=== PATIENT | female | born 1975 | race American Indian/Alaskan Native ===

== ENCOUNTER 2016-12-30 14:21 | Emergency (ER) | payer MEDICAID ==
[2016-12-30 14:52] VITALS: BP 143/80
--- NOTE | 2016-12-30 14:52 | Emergency Department Report ---
Chief Complaint: Extremity Injury, Lower Stated Complaint: MUSCLE PAIN Time Seen by Provider: 12/30/16 14:50 - HPI History of Present Illness: PT c/o calf pain and tightness, no relief with elevation or Motrin 800mg PT states the pain started after she worked on her feet for 10 hours - ROS Review of Systems: R calf pain and swelling - sob - cp - Exam Physical Exam: R calf ttp MSE screening note: Focused history and physical exam performed. Due to findings the following was ordered: us ED Disposition for MSE Condition: Stable
[2016-12-30] MEDS ORDERED: TORADOL IM ONE (16:33)
[2016-12-30] MEDS ORDERED: NORCO 7.5/325 PO ONE (16:33)
[2016-12-30] MEDS ORDERED: FLEXERIL PO ONE (16:33)
--- NOTE | 2016-12-30 18:09 | Emergency Department Report ---
ED Lower Extremity HPI - General Chief Complaint: Extremity Injury, Lower Stated Complaint: MUSCLE PAIN Time Seen by Provider: 12/30/16 14:50 Source: patient Mode of arrival: Ambulatory Limitations: No Limitations - History of Present Illness Initial Comments: 41 year old female presents to ED with right lower leg pain x3 days. 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 patient is stable, neurologically intact and in no acute distress. patient is ambulatory. patient denies injury. Vascular U/S pending. patient will be given pain medication for relief while waiting U/S results. patient has had tubal ligation. Complaint: other (right lower leg pain) -: Gradual, days(s) (3) Injury: Leg: Right Place: work Severity: mild Worsens With: movement - Related Data Previous Rx's Medication Instructions Recorded Last Taken Type Acetaminophen/Codeine 1 tab PO Q6H PRN #25 tab 04/25/14 Unknown Rx [Acetaminophen-Codeine #3 TAB] Doxycycline [Vibramycin CAP] 100 mg PO BID #20 capsule 04/25/14 Unknown Rx Ibuprofen [Motrin] 600 mg PO Q8H PRN #40 tablet 04/25/14 Unknown Rx Famotidine [Pepcid] 20 mg PO BID #40 tablet 04/03/15 Unknown Rx Hyoscyamine Subl [Levsin Sl 0.125 0.125 mg SL Q6HR PRN #20 tab 04/03/15 Unknown Rx TAB] Promethazine [Phenergan TAB] 25 mg PO Q6HR PRN #20 tab 04/03/15 Unknown Rx Ibuprofen [Motrin 800 MG tab] 800 mg PO Q8HR PRN #30 tablet 07/11/15 Unknown Rx Phenazopyridine [Pyridium] 100 mg PO TID #6 tab 07/11/15 Unknown Rx Sulfamethoxazole/Trimethoprim 1 each PO BID #14 tablet 07/11/15 Unknown Rx [Bactrim DS TAB] Oseltamivir [Tamiflu] 75 mg PO BID #10 cap 05/26/16 Unknown Rx Ketorolac [Toradol] 10 mg PO Q6H PRN #20 tablet 12/30/16 Unknown Rx methOCARBAMOL [Robaxin TAB] 500 mg PO BID #20 tab 12/30/16 Unknown Rx Allergies Allergy/AdvReac Type Severity Reaction Status Date / Time No Known Allergies Allergy Unverified 04/25/14 08:41 ED Review of Systems ROS: Stated complaint: MUSCLE PAIN Other details as noted in HPI Constitutional: denies: chills, fever Eyes: denies: eye pain, eye discharge, vision change ENT: denies: ear pain, throat pain Respiratory: denies: cough, shortness of breath, wheezing Cardiovascular: denies: chest pain, palpitations Endocrine: no symptoms reported Gastrointestinal: denies: abdominal pain, nausea, diarrhea Genitourinary: denies: urgency, dysuria, discharge Musculoskeletal: denies: back pain, joint swelling, arthralgia Skin: denies: rash, lesions Neurological: denies: headache, weakness, paresthesias Psychiatric: denies: anxiety, depression Hematological/Lymphatic: denies: easy bleeding, easy bruising ED Past Medical Hx - Past Medical History Previous Medical History?: Yes Hx Hypertension: Yes Additional medical history: ovarian cyst - Surgical History Past Surgical History?: Yes Additional Surgical History: abd wall mass removed- 2010. x 3 - Social History Smoking Status: Current Every Day Smoker Substance Use Type: Alcohol - Medications Home Medications: Home Medications Medication Instructions Recorded Confirmed Last Taken Type Acetaminophen/Codeine 1 tab PO Q6H PRN #25 tab 04/25/14 Unknown Rx [Acetaminophen-Codeine #3 TAB] Doxycycline [Vibramycin CAP] 100 mg PO BID #20 capsule 04/25/14 Unknown Rx Ibuprofen [Motrin] 600 mg PO Q8H PRN #40 tablet 04/25/14 Unknown Rx Famotidine [Pepcid] 20 mg PO BID #40 tablet 04/03/15 Unknown Rx Hyoscyamine Subl [Levsin Sl 0.125 0.125 mg SL Q6HR PRN #20 tab 04/03/15 Unknown Rx TAB] Promethazine [Phenergan TAB] 25 mg PO Q6HR PRN #20 tab 04/03/15 Unknown Rx Ibuprofen [Motrin 800 MG tab] 800 mg PO Q8HR PRN #30 tablet 07/11/15 Unknown Rx Phenazopyridine [Pyridium] 100 mg PO TID #6 tab 07/11/15 Unknown Rx Sulfamethoxazole/Trimethoprim 1 each PO BID #14 tablet 07/11/15 Unknown Rx [Bactrim DS TAB] Oseltamivir [Tamiflu] 75 mg PO BID #10 cap 05/26/16 Unknown Rx Ketorolac [Toradol] 10 mg PO Q6H PRN #20 tablet 12/30/16 Unknown Rx methOCARBAMOL [Robaxin TAB] 500 mg PO BID #20 tab 12/30/16 Unknown Rx ED Physical Exam - General Limitations: No Limitations General appearance: alert, in no apparent distress - Head Head exam: Present: atraumatic, normocephalic - Eye Eye exam: Present: normal appearance - ENT ENT exam: Present: mucous membranes moist - Neck Neck exam: Present: normal inspection - Respiratory Respiratory exam: Present: normal lung sounds bilaterally. Absent: respiratory distress, wheezes - Cardiovascular Cardiovascular Exam: Present: regular rate, normal rhythm. Absent: systolic murmur, diastolic murmur, rubs, gallop - GI/Abdominal GI/Abdominal exam: Present: soft, normal bowel sounds. Absent: tenderness - Extremities Exam Extremities exam: Present: normal inspection - Expanded Lower Extremity Exam Right Hip exam: Present: normal inspection Upper Leg exam: Present: normal inspection Knee exam: Present: normal inspection Lower Leg exam: Present: normal inspection, tenderness. Absent: swelling, laceration, deformity, dislocation (bilateral doraslis pedis pulses intact), erythema Ankle exam: Present: normal inspection Foot/Toe exam: Present: normal inspection Neuro vascular tendon exam: Absent: extremity cold to touch Gait: Positive: observed and normal - Back Exam Back exam: Present: normal inspection, full ROM - Neurological Exam Neurological exam: Present: alert, oriented X3, normal gait - Psychiatric Psychiatric exam: Present: normal affect, normal mood - Skin Skin exam: Present: warm, dry, intact, normal color. Absent: rash ED Course Vital Signs 12/30/16 12/30/16 12/30/16 14:49 16:44 16:45 Temperature 98.2 F Pulse Rate 94 H Respiratory 16 18 18 Rate Blood Pressure 143/80 O2 Sat by Pulse 99 Oximetry ED Lower Extremity MDM - Radiology Data Radiology results: pending, report reviewed INDRA MONREAL ELVIN Female : 1975 [facility]# [id number] 12/30/16 15:46 - Radiology Dept. Note by DANYA ORDAZ Acct Num: [id number] : 1975 Patient Age: 41 RLE VENOUS DUPLEX COMPLETED. VAS LAB PRELIMINARY REPORT; NO EVIDENCE OF DVT/SVT NOTED IN VESSELS/SEGMENTS EXAMINED. PHYSICIANS REPORT TO FOLLOW.... (RSK) Initialized on 12/30/16 15:46 - END OF NOTE - Medical Decision Making 41 year old female presents to ED with lower right leg/calf pain. patient has no DVT present on initial reading of vascular U/S. patient will be called if final report shows acute findings. patient will be given RX for muscle relaxers and pain medications. Critical care attestation.: If time is entered above; I have spent that time in minutes in the direct care of this critically ill patient, excluding procedure time. ED Disposition Clinical Impression: Muscle ache Disposition: DC-01 TO HOME OR SELFCARE Is pt being admited?: No Does the pt Need Aspirin: No Condition: Stable Instructions: Leg Cramps (ED) Prescriptions: Ketorolac [Toradol] 10 mg PO Q6H PRN #20 tablet PRN Reason: Pain methOCARBAMOL [Robaxin TAB] 500 mg PO BID #20 tab Referrals: PRIMARY CARE, [Primary Care Provider] - 3-5 Days
--- NOTE | 2017-01-01 16:51 | Vascular Lab Report ---
Right Lower Extremity Venous Duplex Study: Reason for Exam: Pain of the right lower extremity. Comments on the Right: All veins visualized are freely compressible without evidence of internal echogenicity. Flow is spontaneous and phasic throughout. No evidence of acute or chronic thrombus is seen in any of the vessels visualized. Comments on the Left: A limited duplex study was done of the proximal veins of the left lower extremity. All veins visualized are freely compressible without evidence of internal echogenicity. Flow is spontaneous and phasic throughout. No evidence of acute or chronic thrombus is seen in any of the vessels visualized. Impression: No evidence of acute or chronic deep venous thrombosis in the right lower extremity.
== END 2016-12-30 18:20 | disposition home or self-care (01) ==
LOC: ED 14:21
DX: M79.1 Myalgia (principal); I10 Essential (primary) hypertension; F17.200 Nicotine dependence, unspecified, uncomplicated
CPT/HCPCS: 93971; 96372; 99283; J1885

== ENCOUNTER 2017-02-25 08:51 | Emergency (ER) | payer OTHER, MEDICAID ==
[2017-02-25 09:09] VITALS: BP 137/94
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
[2017-02-25] MEDS ORDERED: MOTRIN PO ONE (11:59)
--- NOTE | 2017-02-25 12:47 | XRay Report ---
LEFT KNEE, 2 views: History: Left knee pain. The bony architecture is intact without evidence of fracture or dislocation. No significant soft tissue abnormality is seen. IMPRESSION: Normal left knee.
--- NOTE | 2017-02-25 12:47 | XRay Report ---
CERVICAL SPINE, 3 views: History: Neck pain. Findings: The vertebral bodies, disk spaces, posterior elements and prevertebral soft tissues are unremarkable. The dens is intact. No acute fracture or malalignment is identified. Impression: 1. No evidence for acute injury to the cervical spine.
--- NOTE | 2017-02-25 12:48 | XRay Report ---
BILATERAL SHOULDERS, 3 VIEWS: History: Bilateral shoulder pain. Findings: Normal bone mineralization. No acute osseous findings or joint pathology is demonstrated. The soft tissues are unremarkable. Impression: Bilateral shoulders within normal limits.
== END 2017-02-25 13:13 | disposition home or self-care (01) ==
LOC: ED 08:51
DX: M25.562 Pain in left knee (principal); M25.511 Pain in right shoulder; I10 Essential (primary) hypertension; F17.200 Nicotine dependence, unspecified, uncomplicated; V89.2XXA Person injured in unspecified motor-vehicle accident, traffic, initial encounter; Y93.89 Activity, other specified; Y99.9 Unspecified external cause status; Y92.410 Unspecified street and highway as the place of occurrence of the external cause
CPT/HCPCS: 72040

== ENCOUNTER 2017-05-05 12:33 | Emergency (ER) | payer MEDICAID, OTHER ==
--- NOTE | 2017-05-05 12:48 | Emergency Department Report ---
Chief Complaint: Extremity Injury, Lower Stated Complaint: LT FOOT/ANKLE PAIN/RIGHT LEG Time Seen by Provider: 05/05/17 12:44 - HPI History of Present Illness: patient is a 41 year old who presents due to left ankle pain and right lower leg pain. Patient denies any injury. Patient states that she has h/o chronic left ankle pain is supposed to have surgery. Patient states that she noticed swelling to her right lateral lower leg, she states that she apply some pressure to the area and the swelling improved. - ROS Review of Systems: left ankle and right lower leg pain - Exam Vital Signs: Vital Signs 05/05/17 12:35 Temperature 98 F Pulse Rate 100 H Respiratory 18 Rate Blood Pressure 138/97 O2 Sat by Pulse 98 Oximetry Physical Exam: left ankle tenderness, mild ecchymosis to the right lateral lower leg. no right calf tenderness. normal ambulation MSE screening note: Focused history and physical exam performed. Due to findings the following was ordered: ED Disposition for MSE Condition: Stable
[2017-05-05 12:58] LABS: Hematocrit 37.6 % (30.3-42.9); Hemoglobin 12.6 gm/dl (10.1-14.3); Mean Corpuscular HGB Conc 33 % (30-34); Mean Corpuscular Hemoglobin 35 pg (28-32); Mean Corpuscular Volume 103 fl (79-97); Platelet Count 250 K/mm3 (140-440); Red Blood Count 3.65 M/mm3 (3.65-5.03); Red Cell Distribution Width 13.3 % (13.2-15.2); White Blood Count 6.6 K/mm3 (4.5-11.0)
[2017-05-05 13:09] LABS: Bilirubin,Urine NEG (Negative); Blood,Urine LG (Negative); Ketones,Urine NEG (Negative); Leukocyte Esterase,Urine NEG (Negative); Mucus,Urine FEW /HPF; Nitrite,Urine NEG (Negative); Protein,Urine <15 mg/dL mg/dL (Negative); Urobilinogen,Urine < 2.0 mg/dL (<2.0)
[2017-05-05 13:15] LABS: Anion Gap 15 mmol/L; BUN/Creatinine Ratio 20; Blood Urea Nitrogen 10 mg/dL (7-17); Carbon Dioxide 26 mmol/L (22-30); Chloride 104.6 mmol/L (98-107); Glucose 88 mg/dL (65-100); Potassium 4.2 mmol/L (3.6-5.0); Sodium 141 mmol/L (137-145)
[2017-05-05] MEDS ORDERED: TORADOL IM ONE (14:16)
--- NOTE | 2017-05-05 14:39 | Emergency Department Report ---
ED Extremity Problem HPI - General Chief complaint: Extremity Injury, Lower Stated complaint: LT FOOT/ANKLE PAIN/RIGHT LEG Time Seen by Provider: 05/05/17 14:13 Source: patient Mode of arrival: Ambulatory Limitations: No Limitations - History of Present Illness Initial comments: 41-year-old female past medical history chronic foot and ankle pain, ovarian cysts presents with acute on chronic bilateral lower extremity pain. Patient states she has discomfort radiating from her heels upward bilaterally. Denies any acute trauma. States she saw an orthopedic admission several years ago which indicated she may have had a bone issue but is unclear what precisely this was. Patient is ambulatory without assistance. States she has aching sore pain which radiates from both ankles upward into midcalf regions. States it is worse in left ankle region on the right. This episode has been ongoing for weeks. Patient is taking Motrin with minimal relief of her pain. Patient denies fevers chills or any direct trauma. MD Complaint: extremity pain Onset/Timin -: month(s) Location: lower extremity History of Same: Yes Radiation: none Severity scale (0 -10): 5 Quality: aching Consistency: constant Worsens with: nothing - Related Data Previous Rx's Medication Instructions Recorded Last Taken Type Acetaminophen/Codeine 1 tab PO Q6H PRN #25 tab 04/25/14 Unknown Rx [Acetaminophen-Codeine #3 TAB] Doxycycline [Vibramycin CAP] 100 mg PO BID #20 capsule 04/25/14 Unknown Rx Ibuprofen [Motrin] 600 mg PO Q8H PRN #40 tablet 04/25/14 Unknown Rx Famotidine [Pepcid] 20 mg PO BID #40 tablet 04/03/15 Unknown Rx Hyoscyamine Subl [Levsin Sl 0.125 0.125 mg SL Q6HR PRN #20 tab 04/03/15 Unknown Rx TAB] Promethazine [Phenergan TAB] 25 mg PO Q6HR PRN #20 tab 04/03/15 Unknown Rx Ibuprofen [Motrin 800 MG tab] 800 mg PO Q8HR PRN #30 tablet 07/11/15 Unknown Rx Phenazopyridine [Pyridium] 100 mg PO TID #6 tab 07/11/15 Unknown Rx Sulfamethoxazole/Trimethoprim 1 each PO BID #14 tablet 07/11/15 Unknown Rx [Bactrim DS TAB] Oseltamivir [Tamiflu] 75 mg PO BID #10 cap 05/26/16 Unknown Rx Ketorolac [Toradol] 10 mg PO Q6H PRN #20 tablet 12/30/16 Unknown Rx methOCARBAMOL [Robaxin TAB] 500 mg PO BID #20 tab 12/30/16 Unknown Rx Cyclobenzaprine [Flexeril] 10 mg PO TID PRN #15 tablet 02/25/17 Unknown Rx Naproxen [Naprosyn TAB] 500 mg PO BID PRN #30 tablet 02/25/17 Unknown Rx Naproxen 500 mg PO BID PRN #30 tablet 05/05/17 Unknown Rx Allergies Allergy/AdvReac Type Severity Reaction Status Date / Time No Known Allergies Allergy Unverified 04/25/14 08:41 ED Review of Systems ROS: Stated complaint: LT FOOT/ANKLE PAIN/RIGHT LEG Other details as noted in HPI Constitutional: denies: chills, fever Eyes: denies: eye pain, eye discharge, vision change ENT: denies: ear pain, throat pain Respiratory: denies: cough, shortness of breath, wheezing Cardiovascular: denies: chest pain, palpitations Endocrine: no symptoms reported Gastrointestinal: denies: abdominal pain, nausea, diarrhea Genitourinary: denies: urgency, dysuria, discharge Musculoskeletal: as per HPI, arthralgia (left ankle). denies: back pain, joint swelling Skin: denies: rash, lesions Neurological: denies: headache, weakness, paresthesias Psychiatric: denies: anxiety, depression Hematological/Lymphatic: denies: easy bleeding, easy bruising ED Past Medical Hx - Past Medical History Hx Hypertension: Yes Additional medical history: ovarian cyst,left ankle pain - Surgical History Additional Surgical History: abd wall mass removed- 2010,. x 3 - Social History Smoking Status: Current Every Day Smoker Substance Use Type: Alcohol, Marijuana - Medications Home Medications: Home Medications Medication Instructions Recorded Confirmed Last Taken Type Acetaminophen/Codeine 1 tab PO Q6H PRN #25 tab 04/25/14 Unknown Rx [Acetaminophen-Codeine #3 TAB] Doxycycline [Vibramycin CAP] 100 mg PO BID #20 capsule 04/25/14 Unknown Rx Ibuprofen [Motrin] 600 mg PO Q8H PRN #40 tablet 04/25/14 Unknown Rx Famotidine [Pepcid] 20 mg PO BID #40 tablet 04/03/15 Unknown Rx Hyoscyamine Subl [Levsin Sl 0.125 0.125 mg SL Q6HR PRN #20 tab 04/03/15 Unknown Rx TAB] Promethazine [Phenergan TAB] 25 mg PO Q6HR PRN #20 tab 04/03/15 Unknown Rx Ibuprofen [Motrin 800 MG tab] 800 mg PO Q8HR PRN #30 tablet 07/11/15 Unknown Rx Phenazopyridine [Pyridium] 100 mg PO TID #6 tab 07/11/15 Unknown Rx Sulfamethoxazole/Trimethoprim 1 each PO BID #14 tablet 07/11/15 Unknown Rx [Bactrim DS TAB] Oseltamivir [Tamiflu] 75 mg PO BID #10 cap 05/26/16 Unknown Rx Ketorolac [Toradol] 10 mg PO Q6H PRN #20 tablet 12/30/16 Unknown Rx methOCARBAMOL [Robaxin TAB] 500 mg PO BID #20 tab 12/30/16 Unknown Rx Cyclobenzaprine [Flexeril] 10 mg PO TID PRN #15 tablet 02/25/17 Unknown Rx Naproxen [Naprosyn TAB] 500 mg PO BID PRN #30 tablet 02/25/17 Unknown Rx Naproxen 500 mg PO BID PRN #30 tablet 05/05/17 Unknown Rx ED Physical Exam - General Limitations: No Limitations General appearance: alert, in no apparent distress - Head Head exam: Present: atraumatic, normocephalic - Eye Eye exam: Present: normal appearance, PERRL, EOMI - ENT ENT exam: Present: mucous membranes moist - Neck Neck exam: Present: normal inspection - Respiratory Respiratory exam: Present: normal lung sounds bilaterally. Absent: respiratory distress - Cardiovascular Cardiovascular Exam: Present: regular rate, normal rhythm. Absent: systolic murmur, diastolic murmur, rubs, gallop - GI/Abdominal GI/Abdominal exam: Present: soft, normal bowel sounds - Extremities Exam Extremities exam: Present: normal inspection, other (bilateral dorsalis pedis and posterior tibial pulses intact on exam, range of motion dorsiflexion and plantarflexion bilaterally intact knee flexion and extension bilaterally intact on exam. No signs of cellulitis or joint swelling bilaterally on clinical exam. Tissues are soft palpation bilaterally.) - Back Exam Back exam: Present: normal inspection - Neurological Exam Neurological exam: Present: alert, oriented X3, CN II-XII intact, normal gait - Psychiatric Psychiatric exam: Present: normal affect, normal mood - Skin Skin exam: Present: warm, dry, intact, normal color. Absent: rash ED Course Vital Signs 05/05/17 12:35 Temperature 98 F Pulse Rate 100 H Respiratory 18 Rate Blood Pressure 138/97 O2 Sat by Pulse 98 Oximetry ED Medical Decision Making - Lab Data Result diagrams: 05/05/17 12:45 05/05/17 12:45 - Medical Decision Making A/P: Chronic lower extremity pain, plantar fasciitis 1-East on patient's symptoms and history of working prolonged hours standing on her feet patient likely has plantar fasciitis as pain radiates from her heels and ankles upward. X-rays unremarkable, negative lower extremity Doppler for DVTs, blood work unremarkable 2-patient feels significant relief after Toradol 3-short course naproxen when necessary. RICE 4- follow-up with orthopedics and podiatry. Will refer patient to primary care as well Critical care attestation.: If time is entered above; I have spent that time in minutes in the direct care of this critically ill patient, excluding procedure time. ED Disposition Clinical Impression: Chronic pain of lower extremity, bilateral Disposition: DC-01 TO HOME OR SELFCARE Is pt being admited?: No Does the pt Need Aspirin: No Condition: Stable Instructions: Plantar Fasciitis (ED), Arthralgia (ED), RICE Therapy (ED) Prescriptions: Naproxen 500 mg PO BID PRN #30 tablet PRN Reason: Pain Referrals: DARRIN CORDERO DPM [Staff Physician] - 3-5 Days IZABELLA BALDWIN MD [Staff Physician] - 3-[address] [facility] [Provider Group] - 3-5 Days Forms: Work/School Release Form(ED) Time of Disposition: 15:08
--- NOTE | 2017-05-05 14:41 | XRay Report ---
BILATERAL TIBIA AND FIBULA, 2 VIEWS History: Bilateral leg pain Findings: No acute osseous abnormality or joint pathology is identified. The soft tissues are unremarkable. Impression: Normal exam.
--- NOTE | 2017-05-05 14:42 | XRay Report ---
LEFT ANKLE RADIOGRAPHS INDICATION: Painful to walk. No injury. COMPARISON: None similar. FINDINGS: AP, lateral and oblique left ankle radiographs demonstrate intact mortise, malleoli and talar dome contour. Unremarkable soft tissues. CONCLUSION: No acute radiographic abnormality. Thank you for the opportunity to participate in this patient's care.
[2017-05-05 15:32] VITALS: BP 136/90
== END 2017-05-05 15:27 | disposition home or self-care (01) ==
LOC: ED 12:33
DX: M25.572 Pain in left ankle and joints of left foot (principal); M25.571 Pain in right ankle and joints of right foot; G89.29 Other chronic pain; I10 Essential (primary) hypertension; F17.200 Nicotine dependence, unspecified, uncomplicated; F12.10 Cannabis abuse, uncomplicated; N83.292 Other ovarian cyst, left side
CPT/HCPCS: 36415; 73590; 73600; 80048; 81001; 81025; 82550; 85027; 93970; 96372; 99284; J1885

== ENCOUNTER 2021-03-08 11:07 | Outpatient (CLI) | payer MEDICAID | END 2021-03-08 11:08 | disposition home or self-care (01) | LOC: MAMMO 11:07 | PROVIDERS: ATTEND Obstetrics & Gynecology | DX: Z12.31 Encounter for screening mammogram for malignant neoplasm of breast (principal) | CPT/HCPCS: 77067 ==

== ENCOUNTER 2021-03-09 18:41 | Observation (INO) | payer MEDICAID ==
--- NOTE | 2021-03-09 18:49 | Emergency Department Report ---
ED Neuro Deficit HPI - General Stated Complaint: AMS/POSS STROKE Time Seen by Provider: 03/09/21 18:43 Source: patient, family, EMS, old records reviewed Mode of arrival: Stretcher Limitations: Language Barrier - History of Present Illness Initial Comments: Chief complaint: Not talking HPI: Is a 45-year-old female with history of depression, hypertension who presents with difficulty with speech. Son witnessed time of onset at 5:30 PM. Patient was unable to express herself verbally. Patient had similar symptoms 1 week ago. She did not seek medical care at that time. Patient is unable to give any further history due to severe aphasia. Patient arrived EMS. Patient is moving all 4 extremities. She is following commands. I spoke directly with son Franki [phone] he was able to confirm time of onset at 1730. Patient had trouble with speech at work last week on Thursday according to his report. Medications Bupropion SR 150 mg twice daily Vitamin D2 1.25 mg once a week Omeprazole 40 mg daily acetaminophen codeine No. 3 1 tablet every 4 hours Amlodipine 10 mg daily -: Sudden, hour(s) (1 hour prior to arrival with 5:30 PM) Location: speech History of same: Yes Place: home Severity: severe Improves With: none Worsens With: none On Anticoagulants: No Context: sudden onset Associated Symptoms: denies other symptoms Treatments Prior to Arrival: other (EMS transfer) - Related Data Home Medications: Previous Rx's Medication Instructions Recorded Last Taken Type Acetaminophen/Codeine 1 tab PO Q6H PRN #25 tab 04/25/14 Unknown Rx [Acetaminophen-Codeine #3 TAB] DOXYCYCLINE Hyclate [Vibramycin 100 mg PO BID #20 capsule 04/25/14 Unknown Rx CAP] Ibuprofen [Motrin] 600 mg PO Q8H PRN #40 tablet 04/25/14 Unknown Rx Famotidine [Pepcid] 20 mg PO BID #40 tablet 04/03/15 Unknown Rx Hyoscyamine Subl [Levsin Sl 0.125 0.125 mg SL Q6HR PRN #20 tab 04/03/15 Unknown Rx TAB] Promethazine [Phenergan TAB] 25 mg PO Q6HR PRN #20 tab 04/03/15 Unknown Rx Ibuprofen [Motrin 800 MG tab] 800 mg PO Q8HR PRN #30 tablet 07/11/15 Unknown Rx Phenazopyridine [Pyridium] 100 mg PO TID #6 tab 07/11/15 Unknown Rx Sulfamethoxazole/Trimethoprim 1 each PO BID #14 tablet 07/11/15 Unknown Rx [Bactrim DS TAB] Oseltamivir [Tamiflu] 75 mg PO BID #10 cap 05/26/16 Unknown Rx Ketorolac [Toradol] 10 mg PO Q6H PRN #20 tablet 12/30/16 Unknown Rx methOCARBAMOL [Robaxin TAB] 500 mg PO BID #20 tab 12/30/16 Unknown Rx Cyclobenzaprine [Flexeril] 10 mg PO TID PRN #15 tablet 02/25/17 Unknown Rx Naproxen [Naprosyn TAB] 500 mg PO BID PRN #30 tablet 02/25/17 Unknown Rx Naproxen 500 mg PO BID PRN #30 tablet 05/05/17 Unknown Rx Allergies/Adverse Reactions: Allergies Allergy/AdvReac Type Severity Reaction Status Date / Time No Known Allergies Allergy Unverified 04/25/14 08:41 ED Review of Systems ROS: Stated complaint: AMS/POSS STROKE Other details as noted in HPI Comment: Unobtainable due to pts medical conditions (Severe aphasia) ED Past Medical Hx - Past Medical History Previous Medical History?: Yes Hx Hypertension: Yes Additional medical history: ovarian cyst,left ankle pain, depression - Surgical History Past Surgical History?: Yes Additional Surgical History: abd wall mass removed- 2010,. x 3 - Social History Smoking Status: Current Every Day Smoker Substance Use Type: Alcohol, Marijuana - Medications Home Medications: Home Medications Medication Instructions Recorded Confirmed Last Taken Type Acetaminophen/Codeine 1 tab PO Q6H PRN #25 tab 04/25/14 Unknown Rx [Acetaminophen-Codeine #3 TAB] DOXYCYCLINE Hyclate [Vibramycin 100 mg PO BID #20 capsule 04/25/14 Unknown Rx CAP] Ibuprofen [Motrin] 600 mg PO Q8H PRN #40 tablet 04/25/14 Unknown Rx Famotidine [Pepcid] 20 mg PO BID #40 tablet 04/03/15 Unknown Rx Hyoscyamine Subl [Levsin Sl 0.125 0.125 mg SL Q6HR PRN #20 tab 04/03/15 Unknown Rx TAB] Promethazine [Phenergan TAB] 25 mg PO Q6HR PRN #20 tab 04/03/15 Unknown Rx Ibuprofen [Motrin 800 MG tab] 800 mg PO Q8HR PRN #30 tablet 07/11/15 Unknown Rx Phenazopyridine [Pyridium] 100 mg PO TID #6 tab 07/11/15 Unknown Rx Sulfamethoxazole/Trimethoprim 1 each PO BID #14 tablet 07/11/15 Unknown Rx [Bactrim DS TAB] Oseltamivir [Tamiflu] 75 mg PO BID #10 cap 05/26/16 Unknown Rx Ketorolac [Toradol] 10 mg PO Q6H PRN #20 tablet 12/30/16 Unknown Rx methOCARBAMOL [Robaxin TAB] 500 mg PO BID #20 tab 12/30/16 Unknown Rx Cyclobenzaprine [Flexeril] 10 mg PO TID PRN #15 tablet 02/25/17 Unknown Rx Naproxen [Naprosyn TAB] 500 mg PO BID PRN #30 tablet 02/25/17 Unknown Rx Naproxen 500 mg PO BID PRN #30 tablet 05/05/17 Unknown Rx ED Neuro Physical Exam - General General appearance: alert, in no apparent distress, other (Patient will make eye contact, attempt to speak without making sound.) Suspected Stroke: Yes - Head Head exam: Present: atraumatic, normocephalic - Eye Eye exam: Present: normal appearance - ENT ENT exam: Present: mucous membranes moist - Neck Neck exam: Present: normal inspection, full ROM - Respiratory Respiratory exam: Present: normal lung sounds bilaterally. Absent: respiratory distress, wheezes, rales, rhonchi - Cardiovascular Cardiovascular Exam: Present: regular rate, normal rhythm, normal heart sounds. Absent: systolic murmur, diastolic murmur, rubs, gallop - GI/Abdominal GI/Abdominal exam: Present: soft, normal bowel sounds. Absent: distended, tenderness, guarding, rebound - Extremities Exam Extremities exam: Present: normal inspection - Neurological Exam Neurological exam: Present: alert - NIHSS Assessment Interval: Baseline 1a. Level of Consciousness: alert/keenly responsive 1b. LOC Questions: aphasic 1c. LOC Commands: performs tasks correctly 2. Best Gaze: normal 3. Visual: no visual loss 4. Facial Palsy: normal symmetrical movement 5b. Motor Arm Right: no drift 5a. Motor Arm Left: no drift 6a. Motor Leg Left: no drift 6b. Motor Leg Right: no drift 7. Limb Ataxia: absent 8. Sensory: normal 9. Best Language: mute/global aphasia 10. Dysarthria: normal 11. Extinction/Inattention: no abnormality Total Score: 5 Stroke Severity: Moderate Stroke - Psychiatric Psychiatric exam: Present: flat affect - Skin Skin exam: Present: warm, dry, intact, normal color. Absent: rash ED Course Vital Signs 03/09/21 19:23 Pulse Rate 82 Blood Pressure 128/79 - Reevaluation(s) Reevaluation #1: 03/09/21 19:16 I reviewed contraindications to TPA after receiving verbal radiology impression directly from Dr. Barnes Reevaluation #2: 03/09/21 19:[address] Villatoro: He stated that TPA should not be given considering the possibility of intracranial mass or subacute CVA. Patient received 5 mg of alteplase prior to discontinuation of the order. - Consultations Consultation #1: 03/09/21 19:03 I spoke with teleneurologist who agreed that patient has severe aphasia necessitating TPA thrombolytic therapy. I immediately informed charge nurse of the treatment plan. I personally await the patient. I obtained weight of 77.8 kg. I entered the weight into the electronic medical record. I ordered alteplase according to TPA protocol. I attempted to obtain history from son. Patient was unable to use her cell phone to obtain her son's phone number. She appeared apparently . Mother Sophia Modi [phone] lives in [place]. Her grandson informed her that Ms. Modi lives in the hospital. I asked mother to obtain phone number for patient's son 03/09/21 19:20 03/09/21 19:28 Consultation #2: 03/09/21 19:[address] Barnes radiologist who informed that there was a slight abnormality in the left frontal gyrus vasogenic edema versus underlying mass lesion possible subacute CVA 03/09/21 19:28 - Lab Data Result diagrams: 03/09/21 18:58 03/09/21 18:58 Lab Results 03/09/21 03/09/21 03/09/21 Range/Units 18:58 18:58 18:58 WBC 9.3 (4.5-11.0) K/mm3 RBC 3.78 (3.65-5.03) M/mm3 Hgb 10.2 (10.1-14.3) gm/dl Hct 31.5 (30.3-42.9) % MCV 83 (79-97) fl MCH 27 L (28-32) pg MCHC 32 (30-34) % RDW 21.3 H (13.2-15.2) % Plt Count 342 (140-440) K/mm3 Lymph % (Auto) 19.4 (13.4-35.0) % Bureau % (Auto) 8.2 H (0.0-7.3) % Eos % (Auto) 0.3 (0.0-4.3) % Baso % (Auto) 0.7 (0.0-1.8) % Lymph # (Auto) 1.8 (1.2-5.4) K/mm3 Bureau # (Auto) 0.8 (0.0-0.8) K/mm3 Eos # (Auto) 0.0 (0.0-0.4) K/mm3 Baso # (Auto) 0.1 (0.0-0.1) K/mm3 Seg Neutrophils % 71.4 H (40.0-70.0) % Seg Neutrophils # 6.7 (1.8-7.7) K/mm3 PT 13.0 (12.2-14.9) Sec. INR 0.92 (0.87-1.13) APTT 30.9 (24.2-36.6) Sec. Sodium 138 (137-145) mmol/L Potassium 3.9 (3.6-5.0) mmol/L Chloride 105.5 (98-107) mmol/L Carbon Dioxide 20 L (22-30) mmol/L Anion Gap 16 mmol/L BUN 9 (7-17) mg/dL Creatinine 0.5 L (0.6-1.2) mg/dL Estimated GFR > 60 ml/min BUN/Creatinine Ratio 18 % Glucose 87 (65-100) mg/dL Calcium 9.8 (8.4-10.2) mg/dL Total Bilirubin 0.60 (0.1-1.2) mg/dL AST 37 (5-40) units/L ALT 36 (7-56) units/L Alkaline Phosphatase 79 (35-129) units/L Troponin T < 0.010 (0.00-0.029) ng/mL Total Protein 7.9 (6.3-8.2) g/dL Albumin 4.3 (3.9-5) g/dL Albumin/Globulin Ratio 1.2 % Plasma/Serum Alcohol (0-0.07) % 03/09/21 Range/Units 18:58 WBC (4.5-11.0) K/mm3 RBC (3.65-5.03) M/mm3 Hgb (10.1-14.3) gm/dl Hct (30.3-42.9) % MCV (79-97) fl MCH (28-32) pg MCHC (30-34) % RDW (13.2-15.2) % Plt Count (140-440) K/mm3 Lymph % (Auto) (13.4-35.0) % Bureau % (Auto) (0.0-7.3) % Eos % (Auto) (0.0-4.3) % Baso % (Auto) (0.0-1.8) % Lymph # (Auto) (1.2-5.4) K/mm3 Bureau # (Auto) (0.0-0.8) K/mm3 Eos # (Auto) (0.0-0.4) K/mm3 Baso # (Auto) (0.0-0.1) K/mm3 Seg Neutrophils % (40.0-70.0) % Seg Neutrophils # (1.8-7.7) K/mm3 PT (12.2-14.9) Sec. INR (0.87-1.13) APTT (24.2-36.6) Sec. Sodium (137-145) mmol/L Potassium (3.6-5.0) mmol/L Chloride (98-107) mmol/L Carbon Dioxide (22-30) mmol/L Anion Gap mmol/L BUN (7-17) mg/dL Creatinine (0.6-1.2) mg/dL Estimated GFR ml/min BUN/Creatinine Ratio % Glucose (65-100) mg/dL Calcium (8.4-10.2) mg/dL Total Bilirubin (0.1-1.2) mg/dL AST (5-40) units/L ALT (7-56) units/L Alkaline Phosphatase (35-129) units/L Troponin T (0.00-0.029) ng/mL Total Protein (6.3-8.2) g/dL Albumin (3.9-5) g/dL Albumin/Globulin Ratio % Plasma/Serum Alcohol < 0.01 (0-0.07) % - EKG Data -: EKG Interpreted by Me EKG shows normal: sinus rhythm, axis, intervals, QRS complexes, ST-T waves Rate: normal Interpretation: normal EKG 03/09/21 19:20 EKG obtained 1915 EKG interpreted by me Rate 85 bpm normal axis normal intervals no ST-T sign ischemia 03/09/21 19:42 EKG obtained 1915 EKG interpreted by me Rate 85 bpm normal axis normal intervals no ST-T sign ischemia nonischemic normal T wave pattern - Radiology Data Radiology results: report reviewed Patient Name: INDRA MODI Gender: Female Date of : 1975 Referring Provider: GABRIEL ESCOTO Organization: [facility] Accession Number: [id number] Requested Date: March 09, 2021 18:50 Report Status: Final Requested Procedure: 1 Procedure Description: CT head/brain wo con Modality: CT Findings Reporting MD: Ochoa Barnes Dictation Time: March 09, 2021 18:12 Oncology Research Rn: Not available Bottle Cleaner Date: CT HEAD WITHOUT CONTRAST INDICATION / CLINICAL INFORMATION: CODE STROKE PROTOCOL!!! Stroke-Like symptoms. TECHNIQUE: All CT scans at this location are performed using CT dose reduction for ALARA by means of automated exposure control. COMPARISON: None available. FINDINGS: HEMORRHAGE: No evidence of intracranial hemorrhage or extra-axial fluid collection. EXTRA-AXIAL SPACES: There is mild effacement of cortical sulci over the convexity of the anterior aspect of the superior orbital fissure. In addition there is slight inferior displacement of the left cingulate sulcus compared to that on the right. These are findings of subtle mass effect in the left superior frontal gyrus. Elsewhere the cortical sulci have an unremarkable appearance. sylvian fissures and basilar cisterns have an unremarkable appearance. VENTRICULAR SYSTEM: The third and lateral ventricles are of normal size and configuration. CEREBRAL PARENCHYMA: Subtle decreased attenuation is seen in the white matter of the left superior frontal gyrus. There is subtle loss of moreno-white distinction in this region. Differential diagnosis includes subacute infarction. Underlying lesion with resultant vasogenic edema cannot be excluded. Follow-up examination to include MRI brain without and with intravenous contrast material is advised. MIDLINE SHIFT OR HERNIATION: There is no mass effect. CEREBELLUM / BRAINSTEM: Brainstem and cerebellum have an unremarkable appearance. MIDLINE STRUCTURES:No abnormalities of the pituitary gland or pineal region are identified. INTRACRANIAL VESSELS:No abnormalities are identified on this noncontrast head CT. ORBITS: visualized portions of the orbits have an unremarkable appearance. SOFT TISSUES of HEAD: No significant abnormality. CALVARIUM: Evaluation of bone windows reveals no abnormalities. PARANASAL SINUSES / MASTOID AIR CELLS: Visualized portions of the paranasal sinuses are free from inflammatory mucosal disease. Mastoid air cells are normally pneumatized. IMPRESSION: 1. Subtle abnormalities are identified in the left superior frontal gyrus where decreased white matter attenuation, subtle loss of graywhite distinction and mild mass effect are observed. This could reflect presence of subacute infarction, however, possibility of an underlying lesion with associated vasogenic edema must also be considered. Further evaluation to include MRI brain without and with intravenous contrast material is suggested. Patient Name: INDRA MODI Gender: Female Date of : 1975 Referring Provider: GABRIEL ESCOTO Organization: [facility] Accession Number: [id number] Requested Date: March 09, 2021 19:30 Report Status: Final Requested Procedure: 1 Procedure Description: CT angio neck Modality: CT Findings Reporting MD: Ochoa Barnes Dictation Time: March 09, 2021 19:46 Oncology Research Rn: Not available Bottle Cleaner Date: CTA neck without and with intravenous contrast material CLINICAL HISTORY: stroke symptoms severe aphasia TECHNIQUE: Following acquisition of a timing bolus 0.625 mm thick contiguous axial scans were obtained from aortic arch to the skull base during rapid bolus intravenous contrast infusion. In addition to evaluation of axial source images multiplanar reconstructions were produced and reviewed for this report. 3 plane MIP reconstructions were produced and reviewed. Contrast dose report: Omnipaque 350: 10 ml, administered intravenously All CT examinations performed at this facility utilize modulated dose reduction, iterative reconstruction or weight-based dosing, as appropriate, to obtain a radiation dose which is as low as can reasonably be ac hieved. FINDINGS: Thoracic aorta:No abnormalities are identified along the course of the thoracic aorta..The origins of the great vessels have an unremarkable appearance. Brachiocephalic artery, left common carotid artery origin and left subclavian artery all have an unremarkable appearance. Right carotid artery:No abnormalities are seen along the course of the RCCA, at the right carotid bifurcation or along the cervical portions of the ADELA. Left carotid artery: No abnormalities are noted along the course of the left common carotid artery, at the left carotid bifurcation or along the course of the cervical segments of the LICA. Posterior circulation:The vertebral arteries have an unremarkable appearance. Both vertebral arteries contribute to the basilar artery origin. The basilar artery has an unremarkable appearance. The degree of stenosis, if any, is determined utilizing NASCET like criteria. In this case there is no indication of hemodynamically significant stenosis at the carotid bifurcations or elsewhere. Evaluation of the nonvascular soft tissue structures reveal no abnormality. There is no indication of cervical lymphadenopathy. No abnormalities are seen along the course of the airway. Visualized portions of the parotid glands and the submandibular salivary glands have a normal appearance. Thyroid gland has a normal appearance. Evaluation of the lung apices reveals no evidence of lung nodule or infiltrate. Evaluation of the cervical spine revealed no significant abnormalities. [facility] [address] [place] [address] P [phone] F [phone] [facility] - Report exported on RustMar 09, 2021 19:52:07 -0500 - Page 2 of 2 IMPRESSION: 1. Normal CTA neck. Signer Name: Ochoa Barnes MD Signed: 03/09/2021 7:46 PM Workstation Name: [id number] [place] [address] Cat Scan Report Signed Patient: INDRA MODI MR#: [id number] : 1975 Acct:[id number] Age/Sex: 45 / F ADM Date: 03/09/21 Loc: ED Attending Dr: Ordering Physician: Gabriel Thapa MD Date of Service: 03/09/21 Procedure(s): CT angio head Accession Number(s): [id number] cc: Gabriel Thapa MD CTA head with intravenous contrast CLINICAL HISTORY: stroke symptoms severe aphasia TECHNIQUE: 0.625 mm thick contiguous axial scans were obtained from the skull base to the skull vertex during rapid bolus administration of intravenous contrast material. Multiplanar reconstructions were produced in the coronal and sagittal planes. In addition 3 plane MIP instructions were produced and reviewed for this report. The axial source images and reconstructed images were reviewed for this report. CONTRAST DOSE REPORT: Omnipaque 350: 100 ml administered intravenously. All CT scans at this location are performed using CT dose reduction for ALARA by means of automated exposure control. FINDINGS: Internal carotid arteries:Tonya, cavernous, opthalmic, clinoid and supraclinoid segments of the ICAs have an unremarkable appearance. Middle cerebral arteries:Normal and symmetrical M1 segments of the middle cerebral arteries are demonstrated. No abnormalities are seen on evaluation of the insular or opercular branches. Anterior cerebral arteries:Bilaterally symmetrical A1 segments are demonstrated. No abnormalities are seen along the course of the A2 segments or their visualized pericallosal branches. Vertebral arteries:Bilaterally symmetrical vertebral arteries are demonstrated. Both vertebral arteries contribute to the basilar artery origin. Basilar artery:Basilar artery has an unremarkable appearance. Posterior cerebral arteries:Bilaterally symmetrical posterior cerebral arteries are identified. Dural sinuses: Dural venous sinuses are well demonstrated on this exam. There is no evidence of dural sinus thrombosis. IMPRESSION: 1. No indication of intercranial stenosis or large vessel occlusion. CT HEAD WITH CONTRAST INDICATION / CLINICAL INFORMATION: stroke symptoms severe aphasia. TECHNIQUE: All CT scans at this location are performed using CT dose reduction for ALARA by means of automated exposure control. After a 10 minute delay following CTA head and neck postcontrast whole brain imaging was acquired. COMPARISON: Head CT without contrast also dated 03/09/2021. FINDINGS: No areas of abnormal contrast enhancement are observed left superior frontal gyrus or elsewhere. IMPRESSION: 1. No foci of abnormal contrast enhancement are identified. Signer Name: Ochoa Barnes MD Signed: 03/09/2021 8:52 PM Workstation Name: [id number] Transcribed By: Dictated By: Ochoa Barnes MD Electronically Authenticated By: Ochoa Barnes MD Signed Date/Time: 03/09/212051 DD/DT: Medical Decision Making Subacute CVA, differential diagnosis includes intracranial mass: I had extensive discussion with teleneurologist Dr. Villatoro mother and son. TPA alteplase ordered. After receiving CT head read from radiologist, subacute CVA intracranial mass or consideration. Dr. Villatoro agreed alteplase is not indicated in this scenario. patient received 5 mg of alteplase bolus prior to discontinuation of order. Patient has findings of subacute CVA versus intracranial mass. Patient had strokelike symptoms on Thursday last week 10 days prior. Patient will be admitted for further work-up. No evidence of LVO on CT angiogram head and neck Critical Care Time: Yes Critical care time in (mins) excluding proc time.: 70 Critical care attestation.: If time is entered above; I have spent that time in minutes in the direct care of this critically ill patient, excluding procedure time. 70 minutes of critical care time excluding procedures were used in the care of the patient. I came immediately to the bedside upon patient's arrival. I obtained history from EMS at the bedside. I discussed treatment plan with the nursing team members. I reviewed electronic record. I kept the family member informed. Patient required multiple interventions and reassessments. Prior to patient's arrival, charge nurse activated code stroke. Patient's arrival by medic the patient and EMS bay entrance. I performed brief evaluation. I immediately attempted to contact family member. ED Disposition Clinical Impression: Acute CVA (cerebrovascular accident) Disposition: ADMITTED INPATIENT Is pt being admited?: Yes Does the pt Need Aspirin: Yes Condition: Stable Referrals: PRIMARY CARE, [Primary Care Provider] - 3-5 Days
[2021-03-09] MEDS ORDERED: ALTEPLASE 100 MG INJ KIT IV ONE ×2 (19:01)
[2021-03-09] MEDS ORDERED: SODIUM CHLORIDE 0.9% 50 ML IVPB IV ONE (19:01)
[2021-03-09 19:15] LABS: Basophils # (Auto) 0.1 K/mm3 (0.0-0.1); Basophils % (Auto) 0.7 % (0.0-1.8); Eosinophils % (Auto) 0.3 % (0.0-4.3); Hematocrit 31.5 % (30.3-42.9); Hemoglobin 10.2 gm/dl (10.1-14.3); Lymphocytes # (Auto) 1.8 K/mm3 (1.2-5.4); Lymphocytes % (Auto) 19.4 % (13.4-35.0); Mean Corpuscular HGB Conc 32 % (30-34); Mean Corpuscular Volume 83 fl (79-97); Monocytes # (Auto) 0.8 K/mm3 (0.0-0.8); Monocytes % (Auto) 8.2 % (0.0-7.3); Platelet Count 342 K/mm3 (140-440); Red Blood Count 3.78 M/mm3 (3.65-5.03)
--- NOTE | 2021-03-09 19:16 | Cat Scan Report ---
CT HEAD WITHOUT CONTRAST INDICATION / CLINICAL INFORMATION: CODE STROKE PROTOCOL!!! Stroke-Like symptoms. TECHNIQUE: All CT scans at this location are performed using CT dose reduction for ALARA by means of automated e xposure control. COMPARISON: None available. FINDINGS: HEMORRHAGE: No evidence of intracranial hemorrhage or extra-axial fluid collection. EXTRA-AXIAL SPACES: There is mild effacement of cortical sulci over the convexity of the anterior asp ect of the superior orbital fissure. In addition there is slight inferior displacement of the left ci ngulate sulcus compared to that on the right. These are findings of subtle mass effect in the left romo perior frontal gyrus. Elsewhere the cortical sulci have an unremarkable appearance. sylvian fissures and basilar cisterns have an unremarkable appearance. VENTRICULAR SYSTEM: The third and lateral ventricles are of normal size and configuration. CEREBRAL PARENCHYMA: Subtle decreased attenuation is seen in the white matter of the left superior fr ontal gyrus. There is subtle loss of moreno-white distinction in this region. Differential diagnosis in cludes subacute infarction. Underlying lesion with resultant vasogenic edema cannot be excluded. Foll ow-up examination to include MRI brain without and with intravenous contrast material is advised. MIDLINE SHIFT OR HERNIATION: There is no mass effect. CEREBELLUM / BRAINSTEM: Brainstem and cerebellum have an unremarkable appearance. MIDLINE STRUCTURES:No abnormalities of the pituitary gland or pineal region are identified. INTRACRANIAL VESSELS:No abnormalities are identified on this noncontrast head CT. ORBITS: visualized portions of the orbits have an unremarkable appearance. SOFT TISSUES of HEAD: No significant abnormality. CALVARIUM: Evaluation of bone windows reveals no abnormalities. PARANASAL SINUSES / MASTOID AIR CELLS: Visualized portions of the paranasal sinuses are free from inf lammatory mucosal disease. Mastoid air cells are normally pneumatized. IMPRESSION: 1. Subtle abnormalities are identified in the left superior frontal gyrus where decreased white matte r attenuation, subtle loss of moreno-white distinction and mild mass effect are observed. This could re flect presence of subacute infarction, however, possibility of an underlying lesion with associated v asogenic edema must also be considered. Further evaluation to include MRI brain without and with intr avenous contrast material is suggested. CODE STROKE: Time of Communication (DESIGN VERIFICATION ENGINEER/CDT): 1809 Central standard time Licensed Practitioner Receiving Report: Dr. Glover of the [facility] emergency department. Signer Name: Ochoa Lucero MD Signed: 03/09/2021 7:12 PM Workstation Name: [id number]
[2021-03-09 19:17] LABS: Red Cell Distribution Width 21.3 % (13.2-15.2)
[2021-03-09 19:26] LABS: INR 0.92 (0.87-1.13)
[2021-03-09 19:27] LABS: Partial Thromboplastin Time 30.9 Sec. (24.2-36.6)
--- NOTE | 2021-03-09 19:34 | Consultation ---
History of Present Illness Consult date: 03/09/21 Medications and Allergies Allergies Allergy/AdvReac Type Severity Reaction Status Date / Time No Known Allergies Allergy Unverified 04/25/14 08:41 Home Medications Medication Instructions Recorded Confirmed Last Taken Type Acetaminophen/Codeine 1 tab PO Q6H PRN #25 tab 04/25/14 Unknown Rx [Acetaminophen-Codeine #3 TAB] DOXYCYCLINE Hyclate [Vibramycin 100 mg PO BID #20 capsule 04/25/14 Unknown Rx CAP] Ibuprofen [Motrin] 600 mg PO Q8H PRN #40 tablet 04/25/14 Unknown Rx Famotidine [Pepcid] 20 mg PO BID #40 tablet 04/03/15 Unknown Rx Hyoscyamine Subl [Levsin Sl 0.125 0.125 mg SL Q6HR PRN #20 tab 04/03/15 Unknown Rx TAB] Promethazine [Phenergan TAB] 25 mg PO Q6HR PRN #20 tab 04/03/15 Unknown Rx Ibuprofen [Motrin 800 MG tab] 800 mg PO Q8HR PRN #30 tablet 07/11/15 Unknown Rx Phenazopyridine [Pyridium] 100 mg PO TID #6 tab 07/11/15 Unknown Rx Sulfamethoxazole/Trimethoprim 1 each PO BID #14 tablet 07/11/15 Unknown Rx [Bactrim DS TAB] Oseltamivir [Tamiflu] 75 mg PO BID #10 cap 05/26/16 Unknown Rx Ketorolac [Toradol] 10 mg PO Q6H PRN #20 tablet 12/30/16 Unknown Rx methOCARBAMOL [Robaxin TAB] 500 mg PO BID #20 tab 12/30/16 Unknown Rx Cyclobenzaprine [Flexeril] 10 mg PO TID PRN #15 tablet 02/25/17 Unknown Rx Naproxen [Naprosyn TAB] 500 mg PO BID PRN #30 tablet 02/25/17 Unknown Rx Naproxen 500 mg PO BID PRN #30 tablet 05/05/17 Unknown Rx Physical Examination - Vital Signs Vital Signs: Vital Signs Pulse BP 82 128/79 03/09/21 19:23 03/09/21 19:23 Results - Laboratory Findings CBC and BMP: 03/09/21 18:58 Abnormal Lab Findings: Abnormal Labs 03/09/21 18:58 MCH 27 L RDW 21.3 H Mccreary % (Auto) 8.2 H Seg Neutrophils % 71.4 H Assessment and Plan [facility] Consult Note # Demographics Consult Type: Acute Stroke Level 1 (0-4.5 hrs) Patient Location: Emergency Room First Name: Jaci Last Name: Ly Date of : 1975 Age: 45 Gender: Female Facility: [facility] Time of Initial Page ( Time): 03/09/2021, 18:45 Time of Return Call ( Time): 03/09/2021, 18:46 # HPI History: 45 yo woman with sudden onset of aphasia starting around 17:30, apparently had similar symptoms last week and did not seek any medical attention. . Last Known Normal: I have collected independent history specific to time last normal or last known well. We have collaborated with the provider and at this time, we have the most current timeline with the information that is available. 173 Possible Thrombolytic candidate: not on warfarin or NOACs no intracranial hemorrhage history no recent major surgery no known active major internal bleeding no known blood disorders # Scores Time of exam and NIHSS ( Time): 03/09/2021, 18:52 Level of Consciousness 1a: [0] = Alert; keenly responsive LOC Questions 1b: [2] = Answers neither correctly LOC Commands 1c: [0] = Performs both tasks correctly Best Gaze 2: [0] = Normal Visual 3: [0] = No visual loss Facial Palsy 4: [0] = Normal symmetrical movements Motor Arm Left 5a: [0] = No drift Motor Arm Right 5b: [0] = No drift Motor Leg Left 6a: [0] = No drift Motor Leg Right 6b: [0] = No drift Limb Ataxia 7: [0] = Absent Sensory 8: [0] = Normal Best Language 9: [3] = Mute Dysarthria 10: [0] = Normal Extinction and Inattention 11: [0] = No abnormality NIHSS Total: 5 # Exam SBP: 145 DBP: 70 # PMH-FH-SH Past Medical History: Depression, Anxiety, Hypertension Medications: Amlodipince, Omeprazole, Bupropion # Assessment Impression: Ischemic Stroke (Acute) Sudden onset of aphasia, CT with possible subacute stroke vs mass. TPA considered but given concern for intracranial mass would not recommend IV tpa. # Plan Thrombolytic/Intervention: NOT IV Thrombolysis or IA Intervention candidate Thrombolytic Exclusion (< 3 hour window): other (see below) Intraarterial Exclusion: CTA pending, call back if abnormal Target Blood Pressure: SBP < 180 DBP < 105 Imaging: (urgency: STAT): MRI Brain with AND without contrast Therapy/Evaluation: NPO until swallow evaluation PT/OT evaluation speech/swallow consultation DVT Prophylaxis: SCD contraindication Other: telemetry monitoring I have discussed my recommendations with the referring provider Additional Recommendations: Further recommentdations following MRI results Disposition: admit # Logistics Telemedicine: Interactive 2 way audio and visual telecommunication technology was utilized during this visit
[2021-03-09 19:40] LABS: Alanine Aminotransferase 36 units/L (7-56); Albumin 4.3 g/dL (3.9-5); Blood Urea Nitrogen 9 mg/dL (7-17); Calcium 9.8 mg/dL (8.4-10.2); Hemolysis Index 0
[2021-03-09 19:45] LABS: BUN/Creatinine Ratio 18
--- NOTE | 2021-03-09 20:50 | Cat Scan Report ---
CTA neck without and with intravenous contrast material CLINICAL HISTORY: stroke symptoms severe aphasia TECHNIQUE: Following acquisition of a timing bolus 0.625 mm thick contiguous axial scans were obtained from aort ic arch to the skull base during rapid bolus intravenous contrast infusion. In addition to evaluation of axial source images multiplanar reconstructions were produced and reviewed for this report. 3 kaylynn ne MIP reconstructions were produced and reviewed. Contrast dose report: Omnipaque 350: 10 ml, administered intravenously All CT examinations performed at this facility utilize modulated dose reduction, iterative reconstruc tion or weight-based dosing, as appropriate, to obtain a radiation dose which is as low as can reason ably be achieved. FINDINGS: Thoracic aorta:No abnormalities are identified along the course of the thoracic aorta..The origins of the great vessels have an unremarkable appearance. Brachiocephalic artery, left common carotid arter y origin and left subclavian artery all have an unremarkable appearance. Right carotid artery:No abnormalities are seen along the course of the RCCA, at the right carotid bif urcation or along the cervical portions of the ADELA. Left carotid artery: No abnormalities are noted along the course of the left common carotid artery, a t the left carotid bifurcation or along the course of the cervical segments of the LICA. Posterior circulation:The vertebral arteries have an unremarkable appearance. Both vertebral arteries contribute to the basilar artery origin. The basilar artery has an unremarkable appearance. The degree of stenosis, if any, is determined utilizing NASCET like criteria. In this case there is no indication of hemodynamically significant stenosis at the carotid bifurcations or elsewhere. Evaluation of the nonvascular soft tissue structures reveal no abnormality. There is no indication of cervical lymphadenopathy. No abnormalities are seen along the course of the airway. Visualized porti ons of the parotid glands and the submandibular salivary glands have a normal appearance. Thyroid gla nd has a normal appearance. Evaluation of the lung apices reveals no evidence of lung nodule or infil trate. Evaluation of the cervical spine revealed no significant abnormalities. IMPRESSION: 1. Normal CTA neck. Signer Name: Ochoa Lucero MD Signed: 03/09/2021 8:46 PM Workstation Name: [id number]
--- NOTE | 2021-03-09 20:57 | Cat Scan Report ---
CTA head with intravenous contrast CLINICAL HISTORY: stroke symptoms severe aphasia TECHNIQUE: 0.625 mm thick contiguous axial scans were obtained from the skull base to the skull vertex during r apid bolus administration of intravenous contrast material. Multiplanar reconstructions were produced in the coronal and sagittal planes. In addition 3 plane MIP instructions were produced and reviewed for this report. The axial source images and reconstructed images were reviewed for this report. CONTRAST DOSE REPORT: Omnipaque 350: 100 ml administered intravenously. All CT scans at this location are performed using CT dose reduction for ALARA by means of automated e xposure control. FINDINGS: Internal carotid arteries:Tonya, cavernous, opthalmic, clinoid and supraclinoid segments of the ICAs have an unremarkable appearance. Middle cerebral arteries:Normal and symmetrical M1 segments of the middle cerebral arteries are demon strated. No abnormalities are seen on evaluation of the insular or opercular branches. Anterior cerebral arteries:Bilaterally symmetrical A1 segments are demonstrated. No abnormalities are seen along the course of the A2 segments or their visualized pericallosal branches. Vertebral arteries:Bilaterally symmetrical vertebral arteries are demonstrated. Both vertebral arteri es contribute to the basilar artery origin. Basilar artery:Basilar artery has an unremarkable appearance. Posterior cerebral arteries:Bilaterally symmetrical posterior cerebral arteries are identified. Dural sinuses: Dural venous sinuses are well demonstrated on this exam. There is no evidence of dural sinus thrombosis. IMPRESSION: 1. No indication of intercranial stenosis or large vessel occlusion. CT HEAD WITH CONTRAST INDICATION / CLINICAL INFORMATION: stroke symptoms severe aphasia. TECHNIQUE: All CT scans at this location are performed using CT dose reduction for ALARA by means of automated e xposure control. After a 10 minute delay following CTA head and neck postcontrast whole brain imaging was acquired. COMPARISON: Head CT without contrast also dated 03/09/2021. FINDINGS: No areas of abnormal contrast enhancement are observed left superior frontal gyrus or elsewhere. IMPRESSION: 1. No foci of abnormal contrast enhancement are identified. Signer Name: Ochoa Lucero MD Signed: 03/09/2021 8:52 PM Workstation Name: [id number]
[2021-03-09] MEDS ORDERED: oxyCODONE /ACETAMINOPHEN 5-325MG TAB PO PRN (21:42)
[2021-03-09] MEDS ORDERED: ACETAMINOPHEN 325 MG TAB PO PRN (21:42)
[2021-03-09] MEDS ORDERED: ALBUTEROL 2.5 MG/3 ML NEBU IH PRN (21:42)
[2021-03-09] MEDS ORDERED: ONDANSETRON 4 MG/2 ML INJ IV PRN (21:42)
[2021-03-09] MEDS ORDERED: HYDROmorphone 1 MG/1 ML INJ IV PRN (21:42)
[2021-03-09] MEDS ORDERED: HYOSCYAMINE SUBL 0.125 MG TAB SL PRN (21:46)
[2021-03-09] MEDS ORDERED: KETOROLAC 10 MG TAB PO PRN (21:46)
--- NOTE | 2021-03-09 21:54 | History and Physical Report ---
History of Present Illness Date of examination: 03/09/21 Date of admission: 03/09/21 Chief complaint: Aphasia History of present illness: 45-year-old female with history of hypertension and depression was brought to the emergency room because of difficulty with speech since 5:30 PM. Patient was unable to express herself verbally. Patient had similar symptoms 1 week ago. She did not seek medical care at that time. Patient is unable to give any further history due to severe aphasia. Patient arrived EMS. Patient is moving all 4 extremities. She is following commands. Initial CT scan shows septal abnormalities are identified in the left superior frontal gyrus decreased white matter attenuation subdural loss of the moreno-white distinction and mild mass effects are observed. This could reflect presence of subacute infarction, however possibility of a underlying lesion with associated vasogenic edema must also be considered. Patient is seen and evaluated by telemetry neurology in the emergency room. Patient is not given any TPA. Med rec is done and advance discharge planning is initiated Past History Past Medical History: hypertension, other (Depression) Medications and Allergies Allergies Allergy/AdvReac Type Severity Reaction Status Date / Time No Known Allergies Allergy Unverified 04/25/14 08:41 Home Medications Medication Instructions Recorded Confirmed Last Taken Type Acetaminophen/Codeine 1 tab PO Q6H PRN #25 tab 04/25/14 Unknown Rx [Acetaminophen-Codeine #3 TAB] DOXYCYCLINE Hyclate [Vibramycin 100 mg PO BID #20 capsule 04/25/14 Unknown Rx CAP] Ibuprofen [Motrin] 600 mg PO Q8H PRN #40 tablet 04/25/14 Unknown Rx Famotidine [Pepcid] 20 mg PO BID #40 tablet 04/03/15 Unknown Rx Hyoscyamine Subl [Levsin Sl 0.125 0.125 mg SL Q6HR PRN #20 tab 04/03/15 Unknown Rx TAB] Promethazine [Phenergan TAB] 25 mg PO Q6HR PRN #20 tab 04/03/15 Unknown Rx Ibuprofen [Motrin 800 MG tab] 800 mg PO Q8HR PRN #30 tablet 07/11/15 Unknown Rx Phenazopyridine [Pyridium] 100 mg PO TID #6 tab 07/11/15 Unknown Rx Sulfamethoxazole/Trimethoprim 1 each PO BID #14 tablet 07/11/15 Unknown Rx [Bactrim DS TAB] Oseltamivir [Tamiflu] 75 mg PO BID #10 cap 05/26/16 Unknown Rx Ketorolac [Toradol] 10 mg PO Q6H PRN #20 tablet 12/30/16 Unknown Rx methOCARBAMOL [Robaxin TAB] 500 mg PO BID #20 tab 12/30/16 Unknown Rx Cyclobenzaprine [Flexeril] 10 mg PO TID PRN #15 tablet 02/25/17 Unknown Rx Naproxen [Naprosyn TAB] 500 mg PO BID PRN #30 tablet 02/25/17 Unknown Rx Naproxen 500 mg PO BID PRN #30 tablet 05/05/17 Unknown Rx Active Meds: Active Medications Acetaminophen (Acetaminophen 325 Mg Tab) 650 mg PO Q4H PRN PRN Reason: Pain MILD(1-3)/Fever >100.5/STACY Albuterol (Albuterol 2.5 Mg/3 Ml Nebu) 2.5 mg IH Q4HRT PRN PRN Reason: Shortness Of Breath Aspirin (Aspirin 81 Mg Tab Chew) 81 mg PO QDAY NANCY Atorvastatin Calcium (Atorvastatin 40 Mg Tab) 40 mg PO QHS [facility] Doxycycline Hyclate (Doxycycline 100 Mg Cap) 100 mg PO BID NANCY; Protocol Hydromorphone HCl (Hydromorphone 1 Mg/1 Ml Inj) 0.5 mg IV Q3H PRN PRN Reason: Pain , Severe (7-10) Hyoscyamine (Hyoscyamine Subl 0.125 Mg Tab) 0.125 mg SL Q6HR PRN PRN Reason: PAIN Dextrose/Sodium Chloride (D5ns) 1,000 mls @ 100 mls/hr IV DIRECT [facility] Ketorolac Tromethamine (Ketorolac 10 Mg Tab) 10 mg PO Q6H PRN PRN Reason: PAIN Stop: 03/14/21 21:45 Ondansetron HCl (Ondansetron 4 Mg/2 Ml Inj) 4 mg IV Q8H PRN PRN Reason: Nausea And Vomiting Oseltamivir Phosphate (Oseltamivir 75 Mg Cap) 75 mg PO BID [facility] Oxycodone/Acetaminophen (Oxycodone /Acetaminophen 5-325mg Tab) 1 tab PO Q6H PRN PRN Reason: Pain, Moderate (4-6) Phenazopyridine HCl (Phenazopyridine 100 Mg Tab) 100 mg PO TID [facility] Sodium Chloride (Sodium Chloride 0.9% 10 Ml Flush Syringe) 10 ml IV BID NANCY Sodium Chloride (Sodium Chloride 0.9% 10 Ml Flush Syringe) 10 ml IV PRN PRN PRN Reason: LINE FLUSH Sodium Chloride (Sodium Chloride 0.9% 10 Ml Flush Syringe) 10 ml INJ PRN PRN PRN Reason: LINE FLUSH Trimethoprim/Sulfamethoxazole (Sulfamethoxazole/Trimethoprim 800/160mg Ds Tab) 1 each PO BID NANCY; Protocol Review of Systems All systems: negative Neurological: aphasia, change in speech Exam - Constitutional Vitals: Temp Pulse Resp BP Pulse Ox 82 128/79 03/09/21 19:23 03/09/21 19:23 General appearance: Present: no acute distress, well-nourished - EENT Eyes: Present: PERRL ENT: hearing intact, clear oral mucosa - Neck Neck: Present: supple, normal ROM - Respiratory Respiratory effort: normal Respiratory: bilateral: CTA - Cardiovascular Heart Sounds: Present: S1 & S2. Absent: rub, click - Extremities Extremities: pulses symmetrical, No edema Peripheral Pulses: within normal limits - Abdominal General gastrointestinal: Present: soft, non-tender, non-distended, normal bowel sounds Female genitourinary: Present: normal - Integumentary Integumentary: Present: clear, warm, dry - Musculoskeletal Musculoskeletal: gait normal, strength equal bilaterally - Psychiatric Psychiatric: appropriate mood/affect, intact judgment & insight - Neurologic Neurologic: CNII-XII intact, moves all extremities, other (Aphasia) HEART Score - HEART Score Troponin: Troponin T < 0.010 ng/mL (0.00-0.029) 03/09/21 18:58 Results - Labs CBC & Chem 7: 03/09/21 18:58 03/09/21 18:58 Labs: Laboratory Last Values WBC 9.3 K/mm3 (4.5-11.0) 03/09/21 18:58 RBC 3.78 M/mm3 (3.65-5.03) 03/09/21 18:58 Hgb 10.2 gm/dl (10.1-14.3) 03/09/21 18:58 Hct 31.5 % (30.3-42.9) 03/09/21 18:58 MCV 83 fl (79-97) 03/09/21 18:58 MCH 27 pg (28-32) L 03/09/21 18:58 MCHC 32 % (30-34) 03/09/21 18:58 RDW 21.3 % (13.2-15.2) H 03/09/21 18:58 Plt Count 342 K/mm3 (140-440) 03/09/21 18:58 Lymph % (Auto) 19.4 % (13.4-35.0) 03/09/21 18:58 [place] % (Auto) 8.2 % (0.0-7.3) H 03/09/21 18:58 Eos % (Auto) 0.3 % (0.0-4.3) 03/09/21 18:58 Baso % (Auto) 0.7 % (0.0-1.8) 03/09/21 18:58 Lymph # (Auto) 1.8 K/mm3 (1.2-5.4) 03/09/21 18:58 [place] # (Auto) 0.8 K/mm3 (0.0-0.8) 03/09/21 18:58 Eos # (Auto) 0.0 K/mm3 (0.0-0.4) 03/09/21 18:58 Baso # (Auto) 0.1 K/mm3 (0.0-0.1) 03/09/21 18:58 Seg Neutrophils % 71.4 % (40.0-70.0) H 03/09/21 18:58 Seg Neutrophils # 6.7 K/mm3 (1.8-7.7) 03/09/21 18:58 PT 13.0 Sec. (12.2-14.9) 03/09/21 18:58 INR 0.92 (0.87-1.13) 03/09/21 18:58 APTT 30.9 Sec. (24.2-36.6) 03/09/21 18:58 Sodium 138 mmol/L (137-145) 03/09/21 18:58 Potassium 3.9 mmol/L (3.6-5.0) 03/09/21 18:58 Chloride 105.5 mmol/L (98-107) 03/09/21 18:58 Carbon Dioxide 20 mmol/L (22-30) L 03/09/21 18:58 Anion Gap 16 mmol/L 03/09/21 18:58 BUN 9 mg/dL (7-17) 03/09/21 18:58 Creatinine 0.5 mg/dL (0.6-1.2) L 03/09/21 18:58 Estimated GFR > 60 ml/min 03/09/21 18:58 BUN/Creatinine Ratio 18 % 03/09/21 18:58 Glucose 87 mg/dL (65-100) 03/09/21 18:58 Calcium 9.8 mg/dL (8.4-10.2) 03/09/21 18:58 Total Bilirubin 0.60 mg/dL (0.1-1.2) 03/09/21 18:58 AST 37 units/L (5-40) 03/09/21 18:58 ALT 36 units/L (7-56) 03/09/21 18:58 Alkaline Phosphatase 79 units/L (35-129) 03/09/21 18:58 Troponin T < 0.010 ng/mL (0.00-0.029) 03/09/21 18:58 Total Protein 7.9 g/dL (6.3-8.2) 03/09/21 18:58 Albumin 4.3 g/dL (3.9-5) 03/09/21 18:58 Albumin/Globulin Ratio 1.2 % 03/09/21 18:58 Plasma/Serum Alcohol < 0.01 % (0-0.07) 03/09/21 18:58 - Imaging and Cardiology CT Scan - head: report reviewed Assessment and Plan VTE prophylaxis?: Mechanical Plan of care discussed with patient/family: Yes - Patient Problems (1) Acute CVA (cerebrovascular accident) Current Visit: Yes Status: Acute Plan to address problem: Admit the patient to the telemetry. N.p.o. D5 normal saline at the rate of 100 cc/h. Aspirin 81 mg p.o. daily. Lipitor 40 mg p.o. daily. MRI of the brain and MRA of the brain and neck with and without contrast. PT OT any speech evaluation. Neurology consult. (2) Hypertension Current Visit: Yes Status: Acute Plan to address problem: We will continue the home medication. Labetalol 10 mg IV every 6 hours as needed. We will monitor the blood pressure closely (3) Depression Current Visit: Yes Status: Acute Plan to address problem: We will continue home medication. Outpatient follow-up with psych. (4) DVT prophylaxis Current Visit: Yes Status: Acute Plan to address problem: SCD for DVT prophylaxis. Protonix 40 mg p.o. daily for GI prophylaxis. Patient is a full code
[2021-03-09] MEDS ORDERED: ASPIRIN 325 MG TAB PO ONE (22:03)
[2021-03-09] MEDS: DOXYCYCLINE 100 MG CAP PO SCH (23:06)
[2021-03-09] MEDS: SULFAMETHOXAZOLE/TRIMETHOPRIM 800/160MG DS TAB PO SCH (23:08)
[2021-03-09] MEDS: OSELTAMIVIR 75 MG CAP PO SCH (23:09)
[2021-03-09] MEDS: D5W/0.9% NACL 1,000 ML IV SCH (23:12)
[2021-03-10 05:31] LABS: Blood Urea Nitrogen 5 mg/dL (7-17); Calcium 9.5 mg/dL (8.4-10.2); Hemolysis Index 3
[2021-03-10 05:35] LABS: BUN/Creatinine Ratio 13; Basophils % (Auto) 0.5 % (0.0-1.8); Eosinophils % (Auto) 0.4 % (0.0-4.3); Hematocrit 30.4 % (30.3-42.9); Hemoglobin 9.8 gm/dl (10.1-14.3); Lymphocytes # (Auto) 1.8 K/mm3 (1.2-5.4); Lymphocytes % (Auto) 22.5 % (13.4-35.0); Mean Corpuscular HGB Conc 32 % (30-34); Mean Corpuscular Volume 84 fl (79-97); Monocytes # (Auto) 0.6 K/mm3 (0.0-0.8); Monocytes % (Auto) 7.7 % (0.0-7.3); Platelet Count 345 K/mm3 (140-440); Red Blood Count 3.63 M/mm3 (3.65-5.03)
[2021-03-10 05:58] LABS: Red Cell Distribution Width 22.1 % (13.2-15.2)
[2021-03-10] MEDS ORDERED: PHENAZOPYRIDINE 100 MG TAB PO SCH (08:00)
--- NOTE | 2021-03-10 08:30 | Progress Note ---
Assessment and Plan Assessment and plan: (1) Acute CVA (cerebrovascular accident) Current Visit: Yes Status: Acute Plan to address problem: Admit the patient to the telemetry. D5 normal saline at the rate of 100 cc/h. Aspirin 81 mg p.o. daily. Lipitor 40 mg p.o. daily. MRI of the brain and MRA of the brain and neck with and without contrast. PT OT any speech evaluation. Neurology consult. (2) Hypertension Current Visit: Yes Status: Acute Plan to address problem: We will continue the home medication. Labetalol 10 mg IV every 6 hours as needed. We will monitor the blood pressure closely (3) Depression Current Visit: Yes Status: Acute Plan to address problem: We will continue home medication. Outpatient follow-up with psych. (4) DVT prophylaxis Current Visit: Yes Status: Acute Plan to address problem: SCD for DVT prophylaxis. Protonix 40 mg p.o. daily for GI prophylaxis. Patient is a full code 03/10/21 Patient presented with aphasia. CT Head shows left frontal gyrus changes sugg subacute ischemia, to r/o mass lesion with underlying vasogenic edema. For MRI Brain w/wo contrast. History Interval history: Aphasia Hospitalist Physical - Physical exam Narrative exam: Gen:Not in acute distress, lying in bed, HEENT:Normocephalic, atraumatic Neck:supple, no JVD Lungs: Clear to auscultation bilaterally, no wheeze Heart:S1 and S2 reg, no murmurs, rubs or gallop Abd:Soft, non tender, non distended, normal bowel sounds Ext:No edema. no clubbing, no cyanosis Neuro:Awake, alert, aphasia, moves all ext - Constitutional Vitals: Temp Pulse Resp BP Pulse Ox 98.3 F 71 14 137/78 99 03/09/21 23:00 03/10/21 05:20 03/10/21 04:45 03/10/21 04:45 03/10/21 04:45 General appearance: Present: no acute distress, well-nourished HEART Score - HEART Score Troponin: Troponin T < 0.010 ng/mL (0.00-0.029) 03/09/21 18:58 Results - Labs CBC & Chem 7: 03/10/21 04:45 03/10/21 04:45 Labs: Laboratory Last Values WBC 8.2 K/mm3 (4.5-11.0) 03/10/21 04:45 RBC 3.63 M/mm3 (3.65-5.03) L 03/10/21 04:45 Hgb 9.8 gm/dl (10.1-14.3) L 03/10/21 04:45 Hct 30.4 % (30.3-42.9) 03/10/21 04:45 MCV 84 fl (79-97) 03/10/21 04:45 MCH 27 pg (28-32) L 03/10/21 04:45 MCHC 32 % (30-34) 03/10/21 04:45 RDW 22.1 % (13.2-15.2) H 03/10/21 04:45 Plt Count 345 K/mm3 (140-440) 03/10/21 04:45 Lymph % (Auto) 22.5 % (13.4-35.0) 03/10/21 04:45 [place] % (Auto) 7.7 % (0.0-7.3) H 03/10/21 04:45 Eos % (Auto) 0.4 % (0.0-4.3) 03/10/21 04:45 Baso % (Auto) 0.5 % (0.0-1.8) 03/10/21 04:45 Lymph # (Auto) 1.8 K/mm3 (1.2-5.4) 03/10/21 04:45 [place] # (Auto) 0.6 K/mm3 (0.0-0.8) 03/10/21 04:45 Eos # (Auto) 0.0 K/mm3 (0.0-0.4) 03/10/21 04:45 Baso # (Auto) 0.0 K/mm3 (0.0-0.1) 03/10/21 04:45 Seg Neutrophils % 68.9 % (40.0-70.0) 03/10/21 04:45 Seg Neutrophils # 5.6 K/mm3 (1.8-7.7) 03/10/21 04:45 PT 13.0 Sec. (12.2-14.9) 03/09/21 18:58 INR 0.92 (0.87-1.13) 03/09/21 18:58 APTT 30.9 Sec. (24.2-36.6) 03/09/21 18:58 Sodium 139 mmol/L (137-145) 03/10/21 04:45 Potassium 3.8 mmol/L (3.6-5.0) 03/10/21 04:45 Chloride 106.9 mmol/L (98-107) 03/10/21 04:45 Carbon Dioxide 22 mmol/L (22-30) 03/10/21 04:45 Anion Gap 14 mmol/L 03/10/21 04:45 BUN 5 mg/dL (7-17) L 03/10/21 04:45 Creatinine 0.4 mg/dL (0.6-1.2) L 03/10/21 04:45 Estimated GFR > 60 ml/min 03/10/21 04:45 BUN/Creatinine Ratio 13 % 03/10/21 04:45 Glucose 101 mg/dL (65-100) H 03/10/21 04:45 Calcium 9.5 mg/dL (8.4-10.2) 03/10/21 04:45 Total Bilirubin 0.60 mg/dL (0.1-1.2) 03/09/21 18:58 AST 37 units/L (5-40) 03/09/21 18:58 ALT 36 units/L (7-56) 03/09/21 18:58 Alkaline Phosphatase 79 units/L (35-129) 03/09/21 18:58 Troponin T < 0.010 ng/mL (0.00-0.029) 03/09/21 18:58 Total Protein 7.9 g/dL (6.3-8.2) 03/09/21 18:58 Albumin 4.3 g/dL (3.9-5) 03/09/21 18:58 Albumin/Globulin Ratio 1.2 % 03/09/21 18:58 Plasma/Serum Alcohol < 0.01 % (0-0.07) 03/09/21 18:58 Active Medications - Current Medications Current Medications: Generic Name Dose Route Start Last Admin Trade Name Freq PRN Reason Stop Dose Admin Acetaminophen 650 mg 03/09/21 21:42 Acetaminophen 325 Mg Tab PO Q4H PRN Pain MILD(1-3)/Fever >100.5/STACY Albuterol 2.5 mg 03/09/21 21:42 Albuterol 2.5 Mg/3 Ml Nebu IH Q4HRT PRN Shortness Of Breath Aspirin 81 mg 03/10/21 10:00 Aspirin 81 Mg Tab Chew PO QDAY NANCY Atorvastatin Calcium 40 mg 03/09/21 22:00 03/09/21 23:06 Atorvastatin 40 Mg Tab PO 40 mg QHS NANCY Administration Doxycycline Hyclate 100 mg 03/09/21 22:00 03/09/21 23:06 Doxycycline 100 Mg Cap PO 100 mg BID NANCY Administration Protocol Hydromorphone HCl 0.5 mg 03/09/21 21:42 Hydromorphone 1 Mg/1 Ml Inj IV Q3H PRN Pain , Severe (7-10) Hyoscyamine 0.125 mg 03/09/21 21:46 Hyoscyamine Subl 0.125 Mg Tab SL Q6HR PRN PAIN Dextrose/Sodium Chloride 1,000 mls @ 100 mls/hr 03/09/21 22:00 03/09/21 23:12 D5ns IV 100 mls/hr DIRECT NANCY Administration Ketorolac Tromethamine 10 mg 03/09/21 21:46 Ketorolac 10 Mg Tab PO 03/14/21 21:45 Q6H PRN PAIN Ondansetron HCl 4 mg 03/09/21 21:42 Ondansetron 4 Mg/2 Ml Inj IV Q8H PRN Nausea And Vomiting Oseltamivir Phosphate 75 mg 03/09/21 22:00 03/09/21 23:09 Oseltamivir 75 Mg Cap PO 75 mg BID NANCY Administration Oxycodone/Acetaminophen 1 tab 03/09/21 21:42 Oxycodone /Acetaminophen 5-325mg Tab PO Q6H PRN Pain, Moderate (4-6) Pantoprazole Sodium 40 mg 03/10/21 07:30 Pantoprazole 40 Mg Tab PO QDAC NANCY Phenazopyridine HCl 100 mg 03/10/21 08:00 Phenazopyridine 100 Mg Tab PO TID NANCY Sodium Chloride 10 ml 03/09/21 22:00 03/09/21 23:07 Sodium Chloride 0.9% 10 Ml Flush Syringe IV 10 ml BID NANCY Administration Sodium Chloride 10 ml 03/09/21 21:42 Sodium Chloride 0.9% 10 Ml Flush Syringe IV PRN PRN LINE FLUSH Trimethoprim/Sulfamethoxazole 1 each 03/09/21 22:00 03/09/21 23:08 Sulfamethoxazole/Trimethoprim 800/160mg Ds Tab PO 1 each BID NANCY Administration Protocol
[2021-03-10] MEDS: ASPIRIN 81 MG TAB CHEW PO SCH (10:17)
[2021-03-10] MEDS: D5W/0.9% NACL 1,000 ML IV SCH (10:17)
[2021-03-10] MEDS: DOXYCYCLINE 100 MG CAP PO SCH (10:17)
[2021-03-10] MEDS: PANTOPRAZOLE 40 MG TAB PO SCH (10:17)
[2021-03-10] MEDS: SULFAMETHOXAZOLE/TRIMETHOPRIM 800/160MG DS TAB PO SCH (10:17)
[2021-03-10] MEDS: OSELTAMIVIR 75 MG CAP PO SCH (14:45)
[2021-03-10] MEDS: HEPARIN 5,000 UNIT/1 ML VIAL SUB-Q SCH (21:13)
[2021-03-11] MEDS: HEPARIN 5,000 UNIT/1 ML VIAL SUB-Q SCH ×2 (05:40→14:55)
--- NOTE | 2021-03-11 07:39 | Consultation ---
History of Present Illness Consult date: 03/11/21 Reason for Consult: ? aphasia History of present illness: Aphasia History of present illness: 45-year-old female with history of hypertension and depression was brought to the emergency room because of difficulty with speech since 5:30 PM 03/09/2021 Patient was unable to express herself verbally. Patient had similar symptoms 1 week ago. She did not seek medical care at that time. Patient is unable to give any further history due to severe aphasia. Patient arrived EMS. Patient is moving all 4 extremities. She is following commands. Initial CT scan shows septal abnormalities are identified in the left superior frontal gyrus decreased white matter attenuation subdural loss of the moreno-white distinction and mild mass effects are observed. This could reflect presence of subacute infarction, however possibility of a underlying lesion with associated vasogenic edema must also be considered. Patient is seen and evaluated by telemetry neurology in the emergency room. Patient is not given any TPA. CTA brain and neck with qd showed no abnormality with no enhancing lesion MRI brain today showed finding is consistent with subacute posterior MCA infarct MRA brain is remarkable for stenosis in left posterior MCA Echo is unremarkable she is in sinus rhythm she is started on ASA 81 mg and Lipitor 40 mg LDL is pending Past History Past Medical History: hypertension, other (Depression) Medications and Allergies Allergies Allergy/AdvReac Type Severity Reaction Status Date / Time No Known Allergies Allergy Unverified 04/25/14 08:41 Home Medications Medication Instructions Recorded Confirmed Last Taken Type Acetaminophen/Codeine 1 tab PO Q6H PRN #25 tab 04/25/14 Unknown Rx [Acetaminophen-Codeine #3 TAB] DOXYCYCLINE Hyclate [Vibramycin 100 mg PO BID #20 capsule 04/25/14 Unknown Rx CAP] Ibuprofen [Motrin] 600 mg PO Q8H PRN #40 tablet 04/25/14 Unknown Rx Famotidine [Pepcid] 20 mg PO BID #40 tablet 04/03/15 Unknown Rx Hyoscyamine Subl [Levsin Sl 0.125 0.125 mg SL Q6HR PRN #20 tab 04/03/15 Unknown Rx TAB] Promethazine [Phenergan TAB] 25 mg PO Q6HR PRN #20 tab 04/03/15 Unknown Rx Ibuprofen [Motrin 800 MG tab] 800 mg PO Q8HR PRN #30 tablet 07/11/15 Unknown Rx Phenazopyridine [Pyridium] 100 mg PO TID #6 tab 07/11/15 Unknown Rx Sulfamethoxazole/Trimethoprim 1 each PO BID #14 tablet 07/11/15 Unknown Rx [Bactrim DS TAB] Oseltamivir [Tamiflu] 75 mg PO BID #10 cap 05/26/16 Unknown Rx Ketorolac [Toradol] 10 mg PO Q6H PRN #20 tablet 12/30/16 Unknown Rx methOCARBAMOL [Robaxin TAB] 500 mg PO BID #20 tab 12/30/16 Unknown Rx Cyclobenzaprine [Flexeril] 10 mg PO TID PRN #15 tablet 02/25/17 Unknown Rx Naproxen [Naprosyn TAB] 500 mg PO BID PRN #30 tablet 02/25/17 Unknown Rx Naproxen 500 mg PO BID PRN #30 tablet 05/05/17 Unknown Rx Active Meds: Active Medications Acetaminophen (Acetaminophen 325 Mg Tab) 650 mg PO Q4H PRN PRN Reason: Pain MILD(1-3)/Fever >100.5/STACY Albuterol (Albuterol 2.5 Mg/3 Ml Nebu) 2.5 mg IH Q4HRT PRN PRN Reason: Shortness Of Breath Aspirin (Aspirin 81 Mg Tab Chew) 81 mg PO QDAY NANCY Atorvastatin Calcium (Atorvastatin 40 Mg Tab) 40 mg PO QHS NANCY Doxycycline Hyclate (Doxycycline 100 Mg Cap) 100 mg PO BID NANCY; Protocol Hydromorphone HCl (Hydromorphone 1 Mg/1 Ml Inj) 0.5 mg IV Q3H PRN PRN Reason: Pain , Severe (7-10) Hyoscyamine (Hyoscyamine Subl 0.125 Mg Tab) 0.125 mg SL Q6HR PRN PRN Reason: PAIN Dextrose/Sodium Chloride (D5ns) 1,000 mls @ 100 mls/hr IV DIRECT [facility] Ketorolac Tromethamine (Ketorolac 10 Mg Tab) 10 mg PO Q6H PRN PRN Reason: PAIN Stop: 03/14/21 21:45 Ondansetron HCl (Ondansetron 4 Mg/2 Ml Inj) 4 mg IV Q8H PRN PRN Reason: Nausea And Vomiting Oseltamivir Phosphate (Oseltamivir 75 Mg Cap) 75 mg PO BID [facility] Oxycodone/Acetaminophen (Oxycodone /Acetaminophen 5-325mg Tab) 1 tab PO Q6H PRN PRN Reason: Pain, Moderate (4-6) Phenazopyridine HCl (Phenazopyridine 100 Mg Tab) 100 mg PO TID NANCY Sodium Chloride (Sodium Chloride 0.9% 10 Ml Flush Syringe) 10 ml IV BID NANCY Sodium Chloride (Sodium Chloride 0.9% 10 Ml Flush Syringe) 10 ml IV PRN PRN PRN Reason: LINE FLUSH Sodium Chloride (Sodium Chloride 0.9% 10 Ml Flush Syringe) 10 ml INJ PRN PRN PRN Reason: LINE FLUSH Trimethoprim/Sulfamethoxazole (Sulfamethoxazole/Trimethoprim 800/160mg Ds Tab) 1 each PO BID NANCY; Protocol Review of Systems All systems: negative Neurological: aphasia, change in speech Past History Past Medical History: hypertension, other (Depression) Medications and Allergies Allergies Allergy/AdvReac Type Severity Reaction Status Date / Time No Known Allergies Allergy Unverified 04/25/14 08:41 Home Medications Medication Instructions Recorded Confirmed Last Taken Type Ergocalciferol [Vitamin D2] 1 cap PO QWEEK 03/10/21 03/10/21 03/07/21 History Gabapentin [Neurontin] 400 mg PO Q8HR 03/10/21 03/10/21 03/08/21 History Omeprazole 40 mg PO QAC 03/10/21 03/10/21 03/08/21 History amLODIPine [Norvasc] 10 mg PO DAILY 03/10/21 03/10/21 03/08/21 History Active Meds: Active Medications Acetaminophen (Acetaminophen 325 Mg Tab) 650 mg PO Q4H PRN PRN Reason: Pain MILD(1-3)/Fever >100.5/STACY Albuterol (Albuterol 2.5 Mg/3 Ml Nebu) 2.5 mg IH Q4HRT PRN PRN Reason: Shortness Of Breath Aspirin (Aspirin 81 Mg Tab Chew) 81 mg PO QDAY [facility] Last Admin: 03/10/21 10:17 Dose: 81 mg Documented by: Atorvastatin Calcium (Atorvastatin 40 Mg Tab) 40 mg PO QHS [facility] Last Admin: 03/10/21 21:13 Dose: 40 mg Documented by: Heparin Sodium (Porcine) (Heparin 5,000 Unit/1 Ml Vial) 5,000 unit SUB-Q Q8HR [facility] Last Admin: 03/11/21 05:40 Dose: 5,000 unit Documented by: Hydromorphone HCl (Hydromorphone 1 Mg/1 Ml Inj) 0.5 mg IV Q3H PRN PRN Reason: Pain , Severe (7-10) Hyoscyamine (Hyoscyamine Subl 0.125 Mg Tab) 0.125 mg SL Q6HR PRN PRN Reason: PAIN Dextrose/Sodium Chloride (D5ns) 1,000 mls @ 100 mls/hr IV DIRECT [facility] Last Admin: 03/10/21 10:17 Dose: 100 mls/hr Documented by: Ketorolac Tromethamine (Ketorolac 10 Mg Tab) 10 mg PO Q6H PRN PRN Reason: PAIN Stop: 03/14/21 21:45 Ondansetron HCl (Ondansetron 4 Mg/2 Ml Inj) 4 mg IV Q8H PRN PRN Reason: Nausea And Vomiting Oxycodone/Acetaminophen (Oxycodone /Acetaminophen 5-325mg Tab) 1 tab PO Q6H PRN PRN Reason: Pain, Moderate (4-6) Pantoprazole Sodium (Pantoprazole 40 Mg Tab) 40 mg PO QDAC [facility] Last Admin: 03/10/21 10:17 Dose: 40 mg Documented by: Sodium Chloride (Sodium Chloride 0.9% 10 Ml Flush Syringe) 10 ml IV BID [facility] Last Admin: 03/10/21 21:14 Dose: 10 ml Documented by: Sodium Chloride (Sodium Chloride 0.9% 10 Ml Flush Syringe) 10 ml IV PRN PRN PRN Reason: LINE FLUSH Physical Examination - Vital Signs Vital Signs: Vital Signs Pulse Resp BP Pulse Ox 89 21 127/75 99 03/09/21 19:15 03/09/21 19:15 03/09/21 19:15 03/09/21 19:15 - Constitutional General appearance: comfortable - EENT EENT: Present: PERRL, mucous membranes moist - Respiratory Respiratory: Present: chest non-tender, lungs clear, rhonchi - Cardiovascular Cardiovascular: Present: regular rate, normal S1, normal S2 Extremities: Present: no peripheral edema bilatateraly, no clubbing, cyanosis - Gastrointestinal Gastrointestinal: Present: normoactive bowel sounds - Integumentary Integumentary: Present: normal - Neurologic Cranial nerve examination: PERRL, EOMI, intact Speech examination: other (slight slurred speech , she is oriented to place and date as well as birthdate ) Detailed motor examination: grossly full strength in - Level of Consciousness 1a. Level of Consciousness: alert/keenly responsive - LOC Questions 1b. LOC Questions: answers both correctly - LOC Command 1c. LOC Commands: performs tasks correctly - Best Gaze 2. Best Gaze: normal - Visual 3. Visual: no visual loss - Facial Palsy 4. Facial Palsy: normal symmetrical movement - Motor Arm 5a. Motor Arm Left: no drift 5b. Motor Arm Right: no drift - Motor Leg 6a. Motor Leg Left: no drift 6b. Motor Leg Right: no drift - Limb Ataxia 7. Limb Ataxia: absent - Sensory 8. Sensory: normal - Best Language 9. Best Language: mild/moderate aphasia - Dysarthria 10. Dysarthria: normal - Extinction and Inattention 11. Extinction/Inattention: no abnormality - Scoring Total Score: 1 Stroke Severity: Minor Stroke Results - Laboratory Findings CBC and BMP: 03/10/21 04:45 03/10/21 04:45 Abnormal Lab Findings: Abnormal Labs 03/09/21 03/09/21 03/10/21 18:58 18:58 04:45 RBC 3.63 L Hgb 9.8 L MCH 27 L 27 L RDW 21.3 H 22.1 H [place] % (Auto) 8.2 H 7.7 H Seg Neutrophils % 71.4 H Carbon Dioxide 20 L BUN Creatinine 0.5 L Glucose 03/10/21 04:45 RBC Hgb MCH RDW [place] % (Auto) Seg Neutrophils % Carbon Dioxide BUN 5 L Creatinine 0.4 L Glucose 101 H Assessment and Plan Assessment and Plan VTE prophylaxis?: Mechanical Plan of care discussed with patient/family: Yes - Patient Problems (1) Acute CVA (cerebrovascular accident) -this is 45 ys old femal presented with subacute change in speech/confusion for one week -started on ASA and Lipitor 40 mg - Initial CT scan shows septal abnormalities are identified in the left superior frontal gyrus decreased white matter attenuation -CTA brain and neck with qd showed no abnormality with no enhancing lesion -MRI brain today showed finding is consistent with subacute posterior MCA infarct -MRA brain is remarkable for stenosis in left posterior MCA -Echo is unremarkable -she is in sinus rhythm -LDL is pending (2) Hypertension -We will continue the home medication. Labetalol 10 mg IV every 6 hours as needed. We will monitor the blood pressure closely (3) Depression -We will continue home medication. Outpatient follow-up with psych. (4) DVT prophylaxis -SCD for DVT prophylaxis. Protonix 40 mg p.o. daily for GI prophylaxis. Patient is a full code PLAN 1- Change ASA to 325 mg daily 2- cardiac monitoring 3- Check LDL 4- Consider MCOT on d/c with cardiology follow up 5- send for homocystein,ESR,JUAN,sickle screen 6- speech therapy will follow
[2021-03-11] MEDS: PANTOPRAZOLE 40 MG TAB PO SCH (10:16)
--- NOTE | 2021-03-11 10:16 | Magnetic Resonance Report ---
MR brain wo/w con INDICATION / CLINICAL INFORMATION: Aphasia. TECHNIQUE: Multiplanar, multisequence MR images of the brain were obtained. COMPARISON: CT head 03/09/2021 FINDINGS: INTRACRANIAL: Restricted diffusion seen along the left superior frontal gyrus corresponding to prior CT. There is also a punctate focus of restricted diffusion in the left insula. No hemorrhagic convers ion. No enhancement. Ventricular caliber is normal. No extra-axial collection. No mass. No herniatio n. Major intracranial vascular flow voids are preserved. ORBITS: No significant abnormality of visualized orbits. SINUSES / MASTOIDS: No significant abnormality of visualized sinuses and mastoid air cells. ADDITIONAL FINDINGS: None. IMPRESSION: 1. Acute infarction left superior frontal gyrus which corresponds to the prior seen CT head. Punctate acute lacunar infarction in the left insula. Given the differing vascular territories, findings coul d be embolic in etiology. Signer Name: Christian Ballesteros MD Signed: 03/11/2021 10:12 AM Workstation Name: [id number]
[2021-03-11] MEDS: ASPIRIN 81 MG TAB CHEW PO SCH (10:17)
--- NOTE | 2021-03-11 11:08 | Magnetic Resonance Report ---
MR MRA/MRV head wo con INDICATION / CLINICAL INFORMATION: 45 years Female; stroke, aphasia, memory loss. TECHNIQUE: 3-D time of flight. NASCET type criteria used to evaluate stenoses. Motion artifact prese nt. COMPARISON: CTA head-03/09/2021 FINDINGS: INTERNAL CAROTID ARTERIES: No significant narrowing appreciated. VERTEBROBASILAR SYSTEM: No significant narrowing appreciated. DISTAL BRANCHES: Distal branches of the anterior, middle, and posterior cerebral arteries are fairly symmetric in appearance and number. There may be a focal area of narrowing in the distal MCA branches in the posterior sylvian fissure re gion on the left, which may be artifactual. ANEURYSM: None identified. IMPRESSION: 1. Focal area of narrowing suggested in the posterior left MCA branches in the sylvian fissure, which may be artifactual. 2. Otherwise, no significant stenosis appreciated. Signer Name: Jake Petersen MD, III Signed: 03/11/2021 11:03 AM Workstation Name: [id number]
--- NOTE | 2021-03-11 11:10 | Progress Note ---
Hospitalist Physical - Constitutional Vitals: Temp Pulse Resp BP Pulse Ox 98.5 F 74 18 109/70 99 03/11/21 08:10 03/11/21 08:10 03/11/21 08:10 03/11/21 08:10 03/11/21 08:10 General appearance: Present: no acute distress, well-nourished HEART Score - HEART Score Troponin: Troponin T < 0.010 ng/mL (0.00-0.029) 03/09/21 18:58 Results - Labs CBC & Chem 7: 03/10/21 04:45 03/10/21 04:45 Labs: Laboratory Last Values WBC 8.2 K/mm3 (4.5-11.0) 03/10/21 04:45 RBC 3.63 M/mm3 (3.65-5.03) L 03/10/21 04:45 Hgb 9.8 gm/dl (10.1-14.3) L 03/10/21 04:45 Hct 30.4 % (30.3-42.9) 03/10/21 04:45 MCV 84 fl (79-97) 03/10/21 04:45 MCH 27 pg (28-32) L 03/10/21 04:45 MCHC 32 % (30-34) 03/10/21 04:45 RDW 22.1 % (13.2-15.2) H 03/10/21 04:45 Plt Count 345 K/mm3 (140-440) 03/10/21 04:45 Lymph % (Auto) 22.5 % (13.4-35.0) 03/10/21 04:45 [place] % (Auto) 7.7 % (0.0-7.3) H 03/10/21 04:45 Eos % (Auto) 0.4 % (0.0-4.3) 03/10/21 04:45 Baso % (Auto) 0.5 % (0.0-1.8) 03/10/21 04:45 Lymph # (Auto) 1.8 K/mm3 (1.2-5.4) 03/10/21 04:45 [place] # (Auto) 0.6 K/mm3 (0.0-0.8) 03/10/21 04:45 Eos # (Auto) 0.0 K/mm3 (0.0-0.4) 03/10/21 04:45 Baso # (Auto) 0.0 K/mm3 (0.0-0.1) 03/10/21 04:45 Seg Neutrophils % 68.9 % (40.0-70.0) 03/10/21 04:45 Seg Neutrophils # 5.6 K/mm3 (1.8-7.7) 03/10/21 04:45 PT 13.0 Sec. (12.2-14.9) 03/09/21 18:58 INR 0.92 (0.87-1.13) 03/09/21 18:58 APTT 30.9 Sec. (24.2-36.6) 03/09/21 18:58 Sodium 139 mmol/L (137-145) 03/10/21 04:45 Potassium 3.8 mmol/L (3.6-5.0) 03/10/21 04:45 Chloride 106.9 mmol/L (98-107) 03/10/21 04:45 Carbon Dioxide 22 mmol/L (22-30) 03/10/21 04:45 Anion Gap 14 mmol/L 03/10/21 04:45 BUN 5 mg/dL (7-17) L 03/10/21 04:45 Creatinine 0.4 mg/dL (0.6-1.2) L 03/10/21 04:45 Estimated GFR > 60 ml/min 03/10/21 04:45 BUN/Creatinine Ratio 13 % 03/10/21 04:45 Glucose 101 mg/dL (65-100) H 03/10/21 04:45 Calcium 9.5 mg/dL (8.4-10.2) 03/10/21 04:45 Total Bilirubin 0.60 mg/dL (0.1-1.2) 03/09/21 18:58 AST 37 units/L (5-40) 03/09/21 18:58 ALT 36 units/L (7-56) 03/09/21 18:58 Alkaline Phosphatase 79 units/L (35-129) 03/09/21 18:58 Troponin T < 0.010 ng/mL (0.00-0.029) 03/09/21 18:58 Total Protein 7.9 g/dL (6.3-8.2) 03/09/21 18:58 Albumin 4.3 g/dL (3.9-5) 03/09/21 18:58 Albumin/Globulin Ratio 1.2 % 03/09/21 18:58 Plasma/Serum Alcohol < 0.01 % (0-0.07) 03/09/21 18:58 Lu/IV: Voiding Method Toilet Active Medications - Current Medications Current Medications: Generic Name Dose Route Start Last Admin Trade Name Freq PRN Reason Stop Dose Admin Acetaminophen 650 mg 03/09/21 21:42 Acetaminophen 325 Mg Tab PO Q4H PRN Pain MILD(1-3)/Fever >100.5/STACY Albuterol 2.5 mg 03/09/21 21:42 Albuterol 2.5 Mg/3 Ml Nebu IH Q4HRT PRN Shortness Of Breath Aspirin 81 mg 03/10/21 10:00 03/11/21 10:17 Aspirin 81 Mg Tab Chew PO 81 mg QDAY NANCY Administration Atorvastatin Calcium 40 mg 03/09/21 22:00 03/10/21 21:13 Atorvastatin 40 Mg Tab PO 40 mg QHS NANCY Administration Heparin Sodium (Porcine) 5,000 unit 03/10/21 19:00 03/11/21 05:40 Heparin 5,000 Unit/1 Ml Vial SUB-Q 5,000 unit Q8HR NANCY Administration Hydromorphone HCl 0.5 mg 03/09/21 21:42 Hydromorphone 1 Mg/1 Ml Inj IV Q3H PRN Pain , Severe (7-10) Hyoscyamine 0.125 mg 03/09/21 21:46 Hyoscyamine Subl 0.125 Mg Tab SL Q6HR PRN PAIN Dextrose/Sodium Chloride 1,000 mls @ 100 mls/hr 03/09/21 22:00 03/10/21 10:17 D5ns IV 100 mls/hr DIRECT NANCY Administration Ketorolac Tromethamine 10 mg 03/09/21 21:46 Ketorolac 10 Mg Tab PO 03/14/21 21:45 Q6H PRN PAIN Ondansetron HCl 4 mg 03/09/21 21:42 Ondansetron 4 Mg/2 Ml Inj IV Q8H PRN Nausea And Vomiting Oxycodone/Acetaminophen 1 tab 03/09/21 21:42 Oxycodone /Acetaminophen 5-325mg Tab PO Q6H PRN Pain, Moderate (4-6) Pantoprazole Sodium 40 mg 03/10/21 07:30 03/11/21 10:16 Pantoprazole 40 Mg Tab PO 40 mg QDAC NANCY Administration Sodium Chloride 10 ml 03/09/21 22:00 03/11/21 10:17 Sodium Chloride 0.9% 10 Ml Flush Syringe IV 10 ml BID NANCY Administration Sodium Chloride 10 ml 03/09/21 21:42 Sodium Chloride 0.9% 10 Ml Flush Syringe IV PRN PRN LINE FLUSH
[2021-03-11] MEDS ORDERED: GABAPENTIN 400 MG CAP PO SCH (14:00)
[2021-03-11 14:41] LABS: Chol/HDL Ratio 2.92 %
[2021-03-11 15:15] LABS: Erythrocyte Sedimentation Rate 44 mm/Hr (0-20)
--- NOTE | 2021-03-11 16:28 | Discharge Summary ---
Providers - Providers Date of Admission: 03/10/21 03:14 Date of discharge: 03/11/21 Attending physician: MICHELLE NELSON 03/09/21 21:42 Consult to Physician [CONS] Routine Comment: Consulting Provider: RENZO CALVILLO Physician Instructions: Reason For Exam: cva Occupational Therapy Evaluate and Treat [CONS] Routine Comment: Reason For Exam: Neuro deficits Physical Therapy Evaluation and Treat [CONS] Routine Comment: Reason For Exam: Neuro deficits 03/11/21 11:09 Speech Therapy Evaluation and Treat [CONS] Routine Reason For Exam: stroke. Aphasia, swallow eval 03/11/21 15:11 Consult to Case Management [CONS] Routine Services Needed at Discharge: Other Comment:: dc planning Primary care physician: HENRIQUE REILLY Hospitalization Condition: Fair Disposition: 01 HOME / SELF CARE / HOMELESS Final Discharge Diagnosis (Prints w/discharge instructions): 1.Stroke - Discharge Diagnoses (1) Hyperlipidemia Status: Acute (2) Acute CVA (cerebrovascular accident) Status: Acute (3) Hypertension Status: Acute Core Measure Documentation - Palliative Care Palliative Care/ Comfort Measures: Not Applicable - Core Measures Any of the following diagnoses?: stroke - Stroke Discharge Requirements Statin for LDL = or >70 mg/dl on DC: Yes Anticoag for atrial fib/atrial flutter: Not Applicable Antithrombotic for ischemic stroke: Yes Exam - Constitutional Vitals: Temp Pulse Resp BP Pulse Ox 97.9 F 83 18 110/70 100 03/11/21 12:04 03/11/21 12:04 03/11/21 12:04 03/11/21 12:04 03/11/21 12:04 Plan Activity: advance as tolerated Diet: low fat, low cholesterol, low salt Plan of Treatment: 1.Follow up with PCP in 1 week. 2.Follow up with Neurology in 1 week 3.Follow up with Dr. Hoover cardiology for MCOT in 1 week Follow up with: PRIMARY CARE, [Referring] - 3-5 Days Prescriptions: Aspirin [Aspirin BABY CHEW TAB] 81 mg PO QDAY #30 tab.chew AtorvaSTATin [Lipitor] 40 mg PO QHS #30 tablet
[2021-03-11] MEDS ORDERED: NON-FORMULARY EACH (Omeprazole [Omeprazole] 40 MG Capsule.Dr) PO SCH (16:30)
[2021-03-11 16:49] VITALS: BP 119/70
--- NOTE | 2021-03-12 08:51 | Electrocardiograph Report ---
[facility] Test Date: 2021-03-09 Test Time: 19:16:58 Pat Name: INDRA MONREAL Department: Room: A476 1 Gender: F [employer]: LAURA : 1975 Requested By: GABRIEL ESCOTO Order Number: [id number] Reading MD: Bernardo Hoover Measurements Intervals [place] Rate: 87 P: 42 GA: 141 QRS: 15 QRSD: 77 T: 25 QT: 366 QTc: 441 Interpretive Statements Sinus rhythm No previous ECG available for comparison Electronically Signed On 03-12-2021 8:50:42 EDT by Bernardo Hoover
[2021-03-14 21:21] LABS: ANA Screen, IFA Negative (Negative)
== END 2021-03-11 18:18 | disposition home or self-care (01) ==
LOC: ED 18:41 → 4A 03-10 03:14
PROVIDERS: ADMIT Hospitalist; ATTEND Internal Medicine
DX: I63.9 Cerebral infarction, unspecified (principal); I10 Essential (primary) hypertension; M25.572 Pain in left ankle and joints of left foot; F17.210 Nicotine dependence, cigarettes, uncomplicated; N83.209 Unspecified ovarian cyst, unspecified side; F32.9 Major depressive disorder, single episode, unspecified; E78.5 Hyperlipidemia, unspecified; R29.705 NIHSS score 5; Z79.82 Long term (current) use of aspirin; Z98.891 History of uterine scar from previous surgery; Z79.899 Other long term (current) drug therapy; Z98.890 Other specified postprocedural states
CPT/HCPCS: 36415; 70450; 70496; 70498; 70544; 70553; 80048; 80053; 80061; 82607; 83516; 84484; 85025; 85610; 85652; 85660; 85730; 86038; 92523; 93005; 93306; 96361; 96372; 96374; 97162; 97165; 99291; A9270; A9575; G0378; J1644; J2997; J7042; Q9967; 80320; G0480